=== PATIENT | female | born 1970 | race Caucasian/White ===

== ENCOUNTER → 2021-06-25 | Outpatient (CLI) | payer BC ==
[~2021-06-25] MED LIST: ACET325; CHLO25 PO; HYDACE5 PO; NAPR500 PO; OTC HEARTBURN MED; OXYACE5T PO; PROM25 PO; RANI150 PO; SULTRIDS PO
== END | disposition home or self-care (01) ==
LOC: LAB 10:40 → LAB SHORT 10:40
DX: R30.0 Dysuria (principal)
CPT/HCPCS: 87077; 87086; 87186

== ENCOUNTER → 2021-07-09 | Outpatient (CLI) | payer BC | LOC: LAB 17:00 → LAB SHORT 17:00 | DX: R30.0 Dysuria (principal) | CPT/HCPCS: 87086 ==

== ENCOUNTER 2021-07-18 09:58 | Emergency (ER) | payer BC ==
[~2021-07-18] VITALS: Ht 165.1 cm; Wt 92.5 kg
[2021-07-18 10:50] LABS: BASOPHILS ABSOLUTE AUTO 0.01 K/mm3 (0.00-0.23); BASOPHILS PERCENT AUTO 0 % (0-2); EOSINOPHILS ABSOLUTE AUTO 0.05 K/mm3 (0.00-0.68); EOSINOPHILS PERCENT AUTO 1 % (0-6); Hemoglobin 12.9 g/dL (11.5-16.0); IMMATURE GRAN ABSOLUTE AUTO 0.02 K/mm3 (0.00-0.10); IMMATURE GRAN PERCENT AUTO 0 % (0-1); LYMPHOCYTES ABSOLUTE AUTO 2.19 K/mm3 (0.84-5.20); LYMPHOCYTES PERCENT AUTO 41 % (21-46); MONOCYTES ABSOLUTE AUTO 0.37 K/mm3 (0.16-1.47); MONOCYTES PERCENT AUTO 7 % (4-13); Mean Corpuscular HGB 31.9 pg (26.0-34.0); Mean Corpuscular HGB Conc 34.9 g/dL (31.5-36.5); Mean Corpuscular Volume 91 fL (80-100); Mean Platelet Volume 8.4 fL (9.1-12.4); NEUTROPHILS ABSOLUTE AUTO 2.66 K/mm3 (1.96-9.15); NEUTROPHILS PERCENT AUTO 50 % (41-73); Platelet Count 177 K/mm3 (150-400); RDW Coefficient Variation 12.5 % (11.7-14.2); RDW Standard Deviation 41.1 fL (35.1-46.3); Red Blood Cell Count 4.05 M/mm3 (3.80-5.20)
[2021-07-18 11:06] LABS: Alanine Aminotransfer (ALT/SGP 32 U/L (12-78); Albumin, Blood 3.3 g/dL (3.4-5.0); Albumin/Globulin Ratio 0.7 (0.8-1.8); Alk Phos 56 U/L (50-136); Anion Gap 7 mmol/L (6-16); Aspartate Aminotrans (AST/SGOT 31 U/L (12-37); Bilirubin, Total 0.3 mg/dL (0.1-1.0); Blood Urea Nitrogen 14 mg/dL (8-24); CO2, Blood 26 mmol/L (21-32); Calcium, Blood 9.1 mg/dL (8.5-10.1); Chloride, Blood 105 mmol/L (98-108); Creatinine, Blood 0.67 mg/dL (0.40-1.00); Globulin, Blood 4.9 g/dL (2.2-4.0); Glomerular Filtration Rate >60 (60-); Glucose, Blood 104 mg/dL (70-99); Potassium, Blood 3.7 mmol/L (3.5-5.5); Sodium, Blood 138 mmol/L (136-145); Total Protein, Blood 8.2 g/dL (6.4-8.2); Troponin I <0.015 ng/mL (0.000-0.040)
[2021-07-18] MEDS ORDERED: OMEPRAZOLE MAGN20 MG PO (14:31)
== END 2021-07-18 15:15 | disposition home or self-care (01) ==
LOC: ER 09:58
PROVIDERS: Physician Assistant
DX: R07.89 Other chest pain (principal); Z88.0 Allergy status to penicillin; Z79.899 Other long term (current) drug therapy
CPT/HCPCS: 36415; 71046; 80053; 83690; 83880; 84484; 85025; 93005; 93010; 99285-25

== ENCOUNTER → 2021-08-11 | Outpatient (CLI) | payer BC ==
[~2021-08-11] MED LIST changes: +OMEPRAZOLE MAGN20 MG PO
[2021-08-11 15:02] LABS: CHOL/HDL RATIO 3.9; Cholesterol 286 mg/dL (50-200); HDL Cholesterol 74 mg/dL (>39); LDL/HDL RATIO 2.4; Low Density Lipoprotein Chol 181 mg/dL (0-110); Triglycerides 156 mg/dL (30-160); Very Low Density Lipoprot Chol 31 mg/dL (6-32)
== END | disposition home or self-care (01) ==
LOC: LAB SHORT 08:58 → LAB 08:58
PROVIDERS: Hospitalist
DX: E11.9 Type 2 diabetes mellitus without complications (principal)
CPT/HCPCS: 80061; 82043; 83036

== ENCOUNTER → 2022-01-25 | Outpatient (CLI) | payer BC ==
[2022-01-25 15:42] LABS: BASOPHILS ABSOLUTE AUTO 0.02 K/mm3 (0.00-0.23); BASOPHILS PERCENT AUTO 0 % (0-2); EOSINOPHILS ABSOLUTE AUTO 0.03 K/mm3 (0.00-0.68); EOSINOPHILS PERCENT AUTO 1 % (0-6); Hematocrit 36.2 % (33.0-51.0); Hemoglobin 12.1 g/dL (11.5-16.0); IMMATURE GRAN ABSOLUTE AUTO 0.02 K/mm3 (0.00-0.10); IMMATURE GRAN PERCENT AUTO 0 % (0-1); LYMPHOCYTES ABSOLUTE AUTO 2.41 K/mm3 (0.84-5.20); LYMPHOCYTES PERCENT AUTO 49 % (21-46); MONOCYTES ABSOLUTE AUTO 0.32 K/mm3 (0.16-1.47); MONOCYTES PERCENT AUTO 6 % (4-13); Mean Corpuscular HGB 31.8 pg (26.0-34.0); Mean Corpuscular HGB Conc 33.4 g/dL (31.5-36.5); Mean Corpuscular Volume 95 fL (80-100); NEUTROPHILS ABSOLUTE AUTO 2.17 K/mm3 (1.96-9.15); NEUTROPHILS PERCENT AUTO 44 % (41-73); Platelet Count 135 K/mm3 (150-400); RDW Coefficient Variation 13.3 % (11.7-14.2); RDW Standard Deviation 45.4 fL (35.1-46.3); Red Blood Cell Count 3.81 M/mm3 (3.80-5.20); White Blood Cell Count 4.97 K/mm3 (4.00-11.30)
[2022-01-25 20:05] LABS: Albumin, Blood 3.8 g/dL (3.4-5.0); Albumin/Globulin Ratio 0.9 (0.8-1.8); Bilirubin, Total 0.2 mg/dL (0.1-1.0); Bun/Creatinine Ratio 19.5 (12.0-20.0); Calcium, Blood 8.9 mg/dL (8.5-10.1); Creatinine, Blood 0.62 mg/dL (0.40-1.00); Globulin, Blood 4.1 g/dL (2.2-4.0); Potassium, Blood 3.5 mmol/L (3.5-5.5); Total Protein, Blood 7.9 g/dL (6.4-8.2)
== END | disposition home or self-care (01) ==
LOC: LAB SHORT 09:10
PROVIDERS: Hospitalist
DX: F10.20 Alcohol dependence, uncomplicated (principal)
CPT/HCPCS: 80053; 85025

== ENCOUNTER → 2022-06-29 | Outpatient (CLI) | payer BC | END | disposition home or self-care (01) | LOC: LAB SHORT 12:00 → LAB 12:00 | DX: L08.9 Local infection of the skin and subcutaneous tissue, unspecified (principal) | CPT/HCPCS: 87070; 87077; 87147; 87186 ==

== ENCOUNTER 2024-04-27 09:14 | Inpatient (IN) | payer BC ==
[~2024-04-27] VITALS: Ht 162.6 cm; Wt 78.2 kg
[~2024-04-27 09:14] MED LIST changes: +HYDACE25S PR
[2024-04-27 09:45] LABS: BASOPHILS ABSOLUTE AUTO 0.01 K/mm3 (0.00-0.23); BASOPHILS PERCENT AUTO 0 % (0-2); EOSINOPHILS ABSOLUTE AUTO 0.06 K/mm3 (0.00-0.68); EOSINOPHILS PERCENT AUTO 1 % (0-6); Hematocrit 36.5 % (33.0-51.0); Hemoglobin 12.3 g/dL (11.5-16.0); IMMATURE GRAN ABSOLUTE AUTO 0.03 K/mm3 (0.00-0.10); IMMATURE GRAN PERCENT AUTO 1 % (0-1); LYMPHOCYTES ABSOLUTE AUTO 1.23 K/mm3 (0.84-5.20); LYMPHOCYTES PERCENT AUTO 25 % (21-46); MONOCYTES ABSOLUTE AUTO 0.22 K/mm3 (0.16-1.47); MONOCYTES PERCENT AUTO 5 % (4-13); Mean Corpuscular HGB 33.5 pg (26.0-34.0); Mean Corpuscular HGB Conc 33.7 g/dL (31.5-36.5); Mean Corpuscular Volume 100 fL (80-100); Mean Platelet Volume 8.9 fL (9.1-12.4); NEUTROPHILS ABSOLUTE AUTO 3.34 K/mm3 (1.96-9.15); NEUTROPHILS PERCENT AUTO 68 % (41-73); Platelet Count 121 K/mm3 (150-400); RDW Coefficient Variation 13.4 % (11.7-14.2); RDW Standard Deviation 47.5 fL (35.1-46.3); Red Blood Cell Count 3.67 M/mm3 (3.80-5.20); White Blood Cell Count 4.89 K/mm3 (4.00-11.30)
[2024-04-27 10:16] LABS: Alanine Aminotransfer (ALT/SGP 22 U/L (12-78); Albumin, Blood 2.8 g/dL (3.4-5.0); Albumin/Globulin Ratio 0.6 (0.8-1.8); Alk Phos 42 U/L (50-136); Anion Gap 12 mmol/L (3-11); Aspartate Aminotrans (AST/SGOT 38 U/L (12-37); Bilirubin, Total 0.4 mg/dL (0.1-1.0); Blood Urea Nitrogen 10 mg/dL (8-24); Bun/Creatinine Ratio 18.6 (12.0-20.0); CO2, Blood 21 mmol/L (21-32); Calcium, Blood 8.6 mg/dL (8.5-10.1); Chloride, Blood 108 mmol/L (98-108); Creatinine, Blood 0.54 mg/dL (0.40-1.00); Ethanol (Alcohol), Blood, Med <3 mg/dL; Globulin, Blood 4.8 g/dL (2.2-4.0); Glomerular Filtration Rate 109 (60-); Glucose, Blood 183 mg/dL (70-99); Potassium, Blood 3.8 mmol/L (3.5-5.5); Sodium, Blood 137 mmol/L (136-145); Total Protein, Blood 7.6 g/dL (6.4-8.2)
[2024-04-27] MEDS ORDERED: LORazepam 2 MG/ML 1ML Injection IV ONE (10:30)
[2024-04-27 11:58] LABS: Source, Urine Clean Catch
[2024-04-27 12:07] LABS: Appearance, Urine Hazy (Clear); Bilirubin, Urine Neg (Neg); Blood, Urine 2+ (Neg); Color, Urine Yellow (P-Yellow); Glucose Qualitative, Urine Neg (Neg); Ketones, Urine Neg (Neg); Leukocyte Esterase, Urine 3+ (Neg); Nitrite, Urine Pos (Neg); Protein, Urine 1+ (Neg); Urobilinogen, Urine 1+ (Normal); pH, Urine 6.5 (5.0-8.0)
[2024-04-27 12:15] LABS: Bacteria Many /hpf; Squamous Epithelial Cells Few /hpf (Few); White Blood Cells, Urine 25-50 /hpf (0-5)
[2024-04-27 12:16] LABS: Mucus Heavy (0-Heavy)
[2024-04-27 12:20] LABS: U Amphetamine Screen Not Detected; U Barbituate Screen Not Detected; U Benzodiazapine Screen DETECTED; U Buprenorphine Screen Not Detected; U Cannabinoids Screen DETECTED; U Cocaine Screen Not Detected; U Methadone Screen Not Detected; U Methamphetamine Screen Not Detected; U Opiates Screen Not Detected; U Oxycodone Screen Not Detected; U Phencyclidine Screen Not Detected
[2024-04-27] MEDS ORDERED: CefTRIAXone Sodium 1,000 MG in NS 100 ML IV ONE (12:35)
[2024-04-27] MEDS ORDERED: CefTRIAXone 1000 MG Vial ONE (13:33)
[2024-04-27] MEDS ORDERED: NS 100 ML IV ONE (13:33)
[2024-04-27] MEDS ORDERED: Acetaminophen 325 MG TABLET PO PRN (13:35)
[2024-04-27] MEDS ORDERED: Ondansetron HCl 2 MG / ML 2ML Vial IV PRN (13:35)
[2024-04-27] MEDS ORDERED: ChlordiazePOXIDE 25 MG Cap PO PRN (13:40)
[2024-04-27] MEDS ORDERED: Folic Acid 1 MG TAB PO SCH (14:00)
[2024-04-27] MEDS ORDERED: Thiamine HCl 100 MG Tab PO SCH (14:00)
[2024-04-27 15:18] VITALS: BP 157/95
[2024-04-27] MEDS ORDERED: Insulin Human Lispro 100 Units/ML 3ML Syringe SC SCH (16:30)
--- NOTE | 2024-04-27 17:24 | NUR ---
SHIFT SUMMARY 1512 PT ADMITTED TO 349 VIA GURNEY FROM ER. PT ABLE TO TX TO BED WITH 2P ASSIST, TAKING SM STEPS. PT VERY UNSTEADY WITH TREMORS NOTED. PT ADMITTED FOR ENCEPHALOPATHY FROM [place]. SPEECH IS SLURRED. PT ABLE TO ANS SOME QUESTIONS APPROPRIATELY. PT'S MOM TO UPON ADMISSION. PER ER REPORT, PT FOUND TO HAVE UTI; ROCEPHIN GIVEN IN ER. NO C/O N/V OR PAIN. PT'S MOM REPORTED THAT S/O; ALEXIS GHOSH, LIVES WITH PT IN HER HOUSE AND DRINKS HEAVILY WELL. VSS; SEE CHART. BED ALARM ON FOR SAFETY. CALL LT IN REACH.
--- NOTE | 2024-04-27 18:03 | NUR ---
PT REQUESTED SOFT DIET, REPORTING THAT SHE IS NOT ABLE TO EAT REGULAR FOOD DUE TO A LOWER LEFT TOOTH INFECTION. L SIDE OF FACE SLIGHTLY SWOLLEN WITH PT REPORTING IT PAINFUL. PT SITTING UP TO EOB REPORTING THAT SHE NEEDED TO GO TO THE BATHRM. 2P ASSIST USING GB TO GET TO BSC AND BACK. PT IS VERY WEAK AND UNSTEADY. BED ALARM ON. CALL LT IN REACH.
[2024-04-27] MEDS ORDERED: ESTRADIOL1 MG PO (18:36)
[2024-04-27] MEDS ORDERED: ZESTRIL40 M1 PO (18:37)
[2024-04-27] MEDS ORDERED: METO50ER PO (18:38)
[2024-04-27] MEDS ORDERED: OMEP20ER PO (18:39)
[2024-04-27 19:38] VITALS: BP 157/97
[2024-04-27] MEDS ORDERED: BUPROPION XL150 M1 PO (23:10)
[2024-04-27] MEDS ORDERED: ACAMPROSATE CA333 MG PO (23:12)
[2024-04-27] MEDS ORDERED: HYDR25SUP PR (23:14)
[2024-04-28] MEDS ORDERED: LORazepam 2 MG/ML 1ML Injection IV PRN ×2 (00:05→00:15)
[2024-04-28] MEDS ORDERED: LORazepam 2 MG/ML 1ML Injection IV ONE (00:10)
[2024-04-28 02:12] VITALS: BP 130/86
--- NOTE | 2024-04-28 03:09 | NUR ---
ONLINE CONTENT COORDINATOR SUMMARY VSS. INTERMITTENT AGITATION, NOTED ARGUMENTS WITH SELF. CALLING OUT, MULTIPLE ATTEMPTS TO GET OUT OF BED. REFUSED TO REDIRECT. LIBRIUM PO ADMINISTERED FOR APPARENT WITHDRAWL SYMPTOMS, BUT MED SEEMED NOT TO WORK. MD NOTIFIED AND ORDERS FOR IV ATIVAN OBTAINED. MED ADMINISTERED, PT STILL ARGUED WITH SELF LOUDLY. INCONT, CHANGED. FLUIDS ENCOURAGED. REST ENCOURAGED. RECENTLY SEEMED TO CALM, RESTING QUIETLY AT THIS TIME. CALL LIGHT IN REACH. RAILS UP AND BED IN LOW POSITION FOR SAFETY. 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 WILL CONTIINUE TO MONITOR
[2024-04-28 04:59] LABS: Hematocrit 33.2 % (33.0-51.0); Hemoglobin 11.7 g/dL (11.5-16.0); Mean Corpuscular HGB 33.4 pg (26.0-34.0); Mean Corpuscular HGB Conc 35.2 g/dL (31.5-36.5); Mean Platelet Volume 8.9 fL (9.1-12.4); Platelet Count 113 K/mm3 (150-400); RDW Coefficient Variation 13.4 % (11.7-14.2); RDW Standard Deviation 45.8 fL (35.1-46.3); White Blood Cell Count 4.75 K/mm3 (4.00-11.30)
[2024-04-28 05:02] LABS: Mean Corpuscular Volume 95 fL (80-100)
[2024-04-28] MEDS ORDERED: OLANZapine 10 MG Vial IM ONE (05:55)
[2024-04-28 05:56] LABS: Albumin, Blood 2.9 g/dL (3.4-5.0); Albumin/Globulin Ratio 0.6 (0.8-1.8); Bilirubin, Total 0.5 mg/dL (0.1-1.0); Bun/Creatinine Ratio 12.1 (12.0-20.0); Calcium, Blood 8.6 mg/dL (8.5-10.1); Creatinine, Blood 0.58 mg/dL (0.40-1.00); Globulin, Blood 4.5 g/dL (2.2-4.0); Magnesium, Blood 1.2 mg/dL (1.6-2.4); Phosphorus, Blood 3.7 mg/dL (2.5-4.9); Potassium, Blood 3.4 mmol/L (3.5-5.5); Total Protein, Blood 7.4 g/dL (6.4-8.2)
[2024-04-28] MEDS ORDERED: Omeprazole 20 MG CapCR PO SCH (06:00)
--- NOTE | 2024-04-28 06:48 | NUR ---
MOTHER CALLED RE PT UPDATE. NOTIFIED OF MCKENZIE AND MEDS GIVEN. STATES WILL COME IN TO SEE HER LATER TODAY
[2024-04-28 07:21] VITALS: BP 148/101
[2024-04-28] MEDS ORDERED: Magnesium Sulf 2 GM/Water 50ML 50 ML IV STA (08:42)
[2024-04-28] MEDS ORDERED: Enoxaparin 40 MG/0.4 ML SYR SC SCH (09:00)
[2024-04-28] MEDS ORDERED: Potassium Chloride 20 MEQ/15 ML UDC PO SCH (09:00)
[2024-04-28] MEDS ORDERED: Estradiol 1 MG Tab PO SCH (09:00)
[2024-04-28] MEDS ORDERED: Lisinopril 20 MG Tab PO SCH (09:00)
[2024-04-28] MEDS ORDERED: Metoprolol Succinate 50 MG TABCR PO SCH (09:00)
[2024-04-28 10:40] VITALS: BP 148/66
--- NOTE | 2024-04-28 11:16 | NUR ---
RESTRAINTS, POSY VEST, LOOSENED PER PROTOCOL THIS AM. PATIENT ATTEMPTING BED EXIT SEVERAL TIMES, NOT TAKING REDIRECTION, NOT ABLE TO ADHERE TO SAFETY RECOMMENDATIONS. AGITATED, YELLING OUT, HALLUCINATING FAMILY MEMEBERS IN ROOM. FLIPPING OFF STAFF, USING PROFAINITY TOWARDS STAFF. MOM PRESENT IN ROOM FOR SECOND ATTEMPT AT LOOSENING VEST, PATIENT BECAME MORE AGITATED THAN BEFORE, MAKING STATEMENTS THAT SHE IS "GOING TO THROW HERSELF ON THE FLOOR LIKE A BABY" "NOT GOING TO EAT ANYMORE AND STARVE TO ". WAS AGREEABLE TO TAKE MEDICATIONS AND DID EAT BREAKFAST.
[2024-04-28] MEDS ORDERED: HydrALAZINE HCl 20 MG / ML 1ML Vial IV PRN (12:35)
[2024-04-28] MEDS ORDERED: CefTRIAXone Sodium 1,000 MG in NS 100 ML IV SCH (13:00)
[2024-04-28] MEDS ORDERED: CefTRIAXone 1000 MG Vial ONE (13:20)
[2024-04-28] MEDS ORDERED: NS 100 ML IV ONE (13:20)
[2024-04-28 15:32] VITALS: BP 147/91
--- NOTE | 2024-04-28 16:57 | NUR ---
SHIFT SUMMARY PATIENT CONTINUES TO REQUIRE MCKENZIE VEST FOR SAFETY, ATTEMTPTING BED EXIT ALMOST CONTINUOUSLY, UNABLE TO ADHERE TO SAFETY INSTRUCTIONS, UNABLE TO FOLLOW BASIC INSTRUCTIONS WHILE IN BED, HALLUCINATING, UNAWARE OF FALL RISKS, UNABLE TO REDIRECT. CIWA SCORES PERFORMED PER PROTOCOL THIS SHIFT, MEDICATED PER NOV. SUICIDE PRECAUTIONS INITIATED FOR DESCRIPTIVE STATEMENTS OF WANTING TO KILL SELF. STATED TO HAVING ROPE HUNG IN GARAGE READY TO HANG HERSELF, STATED SHE TO HAVING A GUN AND SHE IS READY TO SHOOT HERSELF, THAT SHE HAS HAD MULTIPLE UNSUCCESSFUL ATTEMPTS IN THE PAST YEARS, STATED THAT SHE DOES WISH TO AND WILL TRY WHEN SHE GETS HOME, MADE GESTURE OF CUTTING HER THROAT. WORKED WITH PT THIS SHIFT. NO C/O PAIN THIS SHIFT. NOT ALWAYS ABLE TO MAKE NEEDS KNOWN. SITTER PRESENT AT ABOUT 1530. CARES ONGOING.
[2024-04-28 19:26] VITALS: BP 153/94
--- NOTE | 2024-04-28 20:45 | NUR ---
REMAINS ON SI PRECAUTIONS. ROOM SAFE. 1:1 SITTER IN CONTINUOUS MONITORING. SISTER WAS HERE. WAS MORE COMPLIANT WITH MEDS, BUT STILL REFUSING TO COMPLY WITH TREATMENT. WILL CONT TO MONITOR
--- NOTE | 2024-04-28 22:28 | NUR ---
DURING SI ASSESSMENT EARLIER, PT NOT WILLING TO SPEAK WITH TERESITA RICHMOND SI. 1:1 AND SISTER AT BEDSIDE. MCKENZIE ON. ASSESSMENT INSTRUCTED NURSE TO CALL MD TO NOTIFY MD OF PT NOT WILING TO SPEAK, MD NOTIFIED, WILL CONTINUE TO MONITOR. CALL LIGHT IN REACH,
[2024-04-29] MEDS ORDERED: Melatonin 5 MG Tablet PO PRN (01:15)
[2024-04-29 02:34] VITALS: BP 143/88
--- NOTE | 2024-04-29 03:13 | NUR ---
SAWMILL EQUIPMENT OPERATOR SUMMARY VSS. AGITATION AND CONFUSION CONTINUES, AND NOW ON 1:1 FOR SUICIDAL IDEATIONS. INTERMITTENT THREATS OF SELF HARM AND THREATS TO HARM OTHERS. REMAINS IN MCKENZIE VEST FOR SAFETY, SHE CONTINUES TO TRY TO GET OOB, AND IS UNSTEADY. SISTER WAS AT BEDSIDE FOR MUCH OF THE EVENING FOR SUPPORT. RECEIVED IV ATIVAN A FEW TIMES FOR AGITATION AND S/S ETOH WITHDRAWL. INCONT OF URINE AND CHANGED. RESTRAINT CHECKS AND SI ASSESSMENTS CONTINUE. REMAINS WITHOUT APPARENT S/S SELF HARM. SAFETY ENCOURAGED. ENCOURAGED TO EAT AND DRINK, BUT ONLY TOLERATES SMALL AMTS OF FLUIDS. ACCU CHECK WNL. RESTING QUIETLY AT THIS TIME. SHORTENED VERSION OF CALL LIGHT IN REACH, RAILS UP X 3 AND BED IN LOW POSITION FOR SAFETY. ABLE TO REPOSITION SELF IN BED WITHOUT ASSIST. WILL CONTINUE TO MAINTAIN SAFETY OF PT AND ENCOURAGE PT TO FOCUS ON REMAINING SAFE WELL.
[2024-04-29 04:43] LABS: Bun/Creatinine Ratio 14.4 (12.0-20.0); Calcium, Blood 9.2 mg/dL (8.5-10.1); Creatinine, Blood 0.62 mg/dL (0.40-1.00); Magnesium, Blood 1.7 mg/dL (1.6-2.4); Potassium, Blood 3.7 mmol/L (3.5-5.5)
--- NOTE | 2024-04-29 05:12 | NUR ---
VEST RESTRAINT ORDER RENEWED DUE TO PT CONTINUING TO REMAIN UNSAFE GETTING OOB, UNSTEADY AND POSSIBLE FALL RISK.
[2024-04-29 07:42] VITALS: BP 143/82
--- NOTE | 2024-04-29 08:52 | NUR ---
RETURNED CALL TO PATIENT'S MOM, NO ANSWER, UNSPECIFIED VOICEMAIL SO NO MESSAGE LEFT.
--- NOTE | 2024-04-29 09:12 | NUR ---
CALLED SISTER BACK, ASKED FAMILY TO STAY HOME FOR SOME TIME THIS AM TO LET PATIENT REST. PATIENT IS RESTING IN BED QUIETLY WITH EYES CLOSED.
[2024-04-29] MEDS ORDERED: CefTRIAXone 1000 MG Vial ONE (12:53)
[2024-04-29] MEDS ORDERED: NS 100 ML IV ONE (12:53)
[2024-04-29] MEDS ORDERED: NS 250 ML IV PRN (13:40)
[2024-04-29 15:34] VITALS: BP 127/79
[2024-04-29] MEDS ORDERED: NS 1,000 ML IV SCH (17:00)
--- NOTE | 2024-04-29 17:33 | NUR ---
SHIFT SUMMARY MORNING MEDS GIVEN LATER, HELD FOR SAFETY. PATIENT RESTING SO SOUNDLY THIS AM, UNABLE TO WAKE ENOUGH TO SWALLOW SAFELY. PATIENT SPEECH MORE CLEAR COMPARED TO YESTERDAY DAY SHIFT. SCORING LOWER END OF CIWA, MEDICATED ONCE WITH LIBRIUM. BECAME AGITATED WHEN SISTER PRESENT. SISTER LEFT SOON SHE SPOKE WITH DOC AND PATIENT CALMED. IV FLUIDS STARTED SHE HAS HAD POOR PO INTAKE. ABLE TO GET TO BSC WITH 2 ASSIST THIS SHIFT, HAD BM. CALL LIGHT IN REACH, 1:1 SITTER PRESENT, MCKENZIE VEST ON, SI PRECAUTIONS STILL IN EFFECT. PSYCH DOC IN THIS AM, DEFFERED ASSESSMENT UNTIL TOMORROW BECAUSE PATIENT WOULDN'T WAKE LONG ENOUGH. CARES ONGOING
[2024-04-29 20:15] VITALS: BP 132/85
[2024-04-29] MEDS ORDERED: Haloperidol Lactate Inj. 5 MG/ML Injection IM PRN (22:35)
[2024-04-29] MEDS ORDERED: Haloperidol Lactate Inj. 5 MG/ML Injection IM ONE (22:35)
--- NOTE | 2024-04-29 23:00 | NUR ---
SCREAMING AT STAFF, KICKING AT STAFF. SPITTING AT STAFF. MEDS GIVEN FOR AGITATION. ATIVAN GIVEN, STILL AGITATED. NOTIFIED AND HAKEEM MITCHELL ORDERED AND GIVEN. IVF INFUSING. SEE MAR FOR DETAILS. MCKENZIE IN PLACE. RAILS UP X 3. SHORT CALL LIGHT IN PLACE. 1:1 SITTER MAINTAINED. DEESCALATION ATTEMPTS MADE. SISTER CALLED, INFORMED OF PT SITUATION. VOICED SHE WAS IN "[place]" AND THAT THE PT HAD BECOME AGITATIED WITH HER WELL AND SO SHE WOULD TAKE A FEW DAYS TO REST BEFORE COMING BACK. WILL CONTINUE TO MONITOR
--- NOTE | 2024-04-29 23:10 | NUR ---
SUICIDE ASSESSMENT NOTE REMAINS ON SUICIDE PRECAUTIONS WITH 1:1 SITTER. AGITATION AND ANGER WAXES AND WANES, BUT THREATS CONTINUE, REFUSES TO TALK WITH STAFF, SCREAMS AND SPITS. MEDS GIVEN - SEE MAR FOR DETAILS. SAFETY MAINTAINED. MCKENZIE IN PLACE. RAILS UP X 3. SHORT VERSION OF CALL LIGHT IN PLACE.
--- NOTE | 2024-04-30 03:37 | NUR ---
CULTURAL HISTORIAN SUMMARY VSS. 1:1 SITTER REMAINS FOR SI PRECAUTIONS. IVF OF NS INFUSING AT 75 ML/HR. SHIFT STARTED WITH PT RESTING QUIETLY WITH MCKENZIE IN USE FOR SAFETY, THEN A FEW HOURS INTO THE SHIFT, BECAME VERY AGITATED, SCREAMING AT STAFF, SPITTING AT THEM AND THREATENING THAT HER MALE ACQUAINTENANCE WILL KILL EACH OF US. INCONT OF URINE AFEW TIMES AND CHANGED WITH MULTIPLE STAFF ASSIST. CIWA SCORES REMAIN ELEVATED, ATIVAN PRN ADMINISTERED. NOTIFIED OF BEHAVIOR - ORDERS OBTAINED, SEE MAR FOR DETAILS. PRNS FINALLY EFFECTIVE, RSETING QUIETLY. NO NOTED ACUTE DISTRESS AT THIS TIME. ABLE TO REPOSITION SELF IN BED WITHOUT ASSIST, MCKENZIE IN PLACE AND CHECKS Q 2 HR CONTINUE WELL Q 4 HR CHECK/ASSESS FOR SI. RAILS UP X 3, BED IN LOW POSITION AND SHORT CALL LIGHT IN PLACE FOR SAFETY. WILL CONT TO MONITOR/ASSESS
--- NOTE | 2024-04-30 05:09 | NUR ---
MCKENZIE RESTRAINT ORDER RENEWED PT CONTINUES TO DISPLAY UNSAFE BEHAVIOR, ATTEMPTS TO GET OOB, UNSTEADY AND NOT REDIRECTABLE. - SEE MD ORDRES FOR DETAILS
[2024-04-30 07:34] VITALS: BP 138/92
[2024-04-30 08:35] LABS: Hematocrit 36.9 % (33.0-51.0); Hemoglobin 12.9 g/dL (11.5-16.0); Mean Corpuscular HGB 33.5 pg (26.0-34.0); Mean Corpuscular Volume 96 fL (80-100); Mean Platelet Volume 9.2 fL (9.1-12.4); Platelet Count 142 K/mm3 (150-400); RDW Coefficient Variation 13.1 % (11.7-14.2); RDW Standard Deviation 45.9 fL (35.1-46.3); Red Blood Cell Count 3.85 M/mm3 (3.80-5.20); White Blood Cell Count 4.59 K/mm3 (4.00-11.30)
[2024-04-30 08:47] LABS: Bun/Creatinine Ratio 23.2 (12.0-20.0); Calcium, Blood 8.9 mg/dL (8.5-10.1); Creatinine, Blood 0.52 mg/dL (0.40-1.00); Potassium, Blood 3.8 mmol/L (3.5-5.5)
[2024-04-30] MEDS ORDERED: NS 100 ML IV ONE (12:33)
[2024-04-30] MEDS ORDERED: CefTRIAXone 1000 MG Vial ONE (12:33)
[2024-04-30 15:17] VITALS: BP 152/97
--- NOTE | 2024-04-30 16:17 | NUR ---
PT STARTED SHIFT CONFUSED, AND IMPULSIVE TRYING TO GET OUT OF BED. PT WAS PLEASANT AND REDIRECTABLE. PT HAS SITTER WITH HER AND WAS APPROPRIATE WITH HER CARE. PT THEN BEGAN TO GET AGITATED AND WAS GIVEN SOME ATIVAN BY 1315 PT WAS SCREAMING, YELLING, PULLING AT LINES, KICKING AND HITTING. PT WAS PUT INTO WRIST RESTRAINTS AND TREATED PER EMAR. PT'S SISTER ALSO ARRIVED AND WAS ABLE TO BE IN ROOM AND CALM PT. PT IS BEING WATCHED CLOSELY, AND SEEMS BETTER WILL CONTINUE TO MONITOR.
--- NOTE | 2024-04-30 16:21 | NUR ---
PT'S RESPONSE TO THE ATIVAN DOSES WAS REPORTED TO DR VALENTINO AND ATIVAN HAS BEEN DC'D.
[2024-04-30] MEDS ORDERED: OLANZapine 10 MG Vial IM PRN (16:45)
[2024-04-30] MEDS ORDERED: Haloperidol Lactate Inj. 5 MG/ML Injection IV PRN (16:45)
[2024-04-30 21:13] VITALS: BP 115/83
--- NOTE | 2024-05-01 03:37 | NUR ---
GEODESIST SUMMARY SHIFT STARTED OUT WITH PT SCREAMING AT HER SISTER IN THE ROOM, CALLING HER NAMES. ON FIRST ASSESSMENT, WHEN WE LOOSENED RESTRAINTS TO CHANGE HER BRIEF, (WHICH SHE HAD CALMLY AGREED TO), SHE GRABBED MY STETHESCOPE AND STARTED SWINGING IT AT MY HEAD. THEN SHE VERBALLY THREATENED TO "CHOKE" ME WITH IT. DALTON SANDERS CNA, WAS WITNESS TO THIS. SHE WAS ONLY ORIENTED X 1, THOUGHT SHE WAS IN HER HOME, AND WAS SCARED FOR HER SAFETY. WE CALMLY REASSURED HER AND TRIED TO REORIENT HER, BUT SHE WAS NOT REDIRECTABLE. WHEN TOLD SHE WAS IN THE HOSPITAL, SHE SAID "NO WERE NOT, YOURE FUCKING LIARS". EXPLAINED RESTRAINT DISCONTINUATION CRITERIA TO PATIENT, THAT SHE WOULD NEED TO STOP KICKING AND SWINGING AT STAFF BUT SHE WOULD NOT AGREE TO THIS. ANDRE AND GRADYL GIVEN THIS SHIFT WITH TEMPORARY MILD IMPROVEMENTS IN BEHAVIOR. PT REMAINS IN 4 POINT RESTRAINTS AND SI SITTER/SI PRECAUTIONS. RESTRAINTS CHECKED EVERY 2 HOURS, WITH CIRCULATION/SKIN CHECKS AND WITH OFFERS FOR TOILET/FOOD/DRINK/COMFORT. PT CONTINUES TO BE A DANGER TO HERSELF AND OTHERS, WITH MULTIPLE ATTEMPTS TO GET UP WITHOUT ASKING FOR ASSISTANCE, MULTIPLE ATTEMPTS AT PULLING OUT HER IV, AND MULTIPLE ATTACKS TOWARDS STAFF, INCLUDING SPITTING, HITTING, AND KICKING. SISTER LEFT AT 2014 AND PLANS ON COMING BACK IN THE MORNING TO HELP.
[2024-05-01 05:15] VITALS: BP 132/80
[2024-05-01 06:55] LABS: BASOPHILS ABSOLUTE AUTO 0.01 K/mm3 (0.00-0.23); BASOPHILS PERCENT AUTO 0 % (0-2); EOSINOPHILS ABSOLUTE AUTO 0.04 K/mm3 (0.00-0.68); EOSINOPHILS PERCENT AUTO 1 % (0-6); Hematocrit 36.6 % (33.0-51.0); IMMATURE GRAN ABSOLUTE AUTO 0.02 K/mm3 (0.00-0.10); IMMATURE GRAN PERCENT AUTO 0 % (0-1); LYMPHOCYTES ABSOLUTE AUTO 1.84 K/mm3 (0.84-5.20); LYMPHOCYTES PERCENT AUTO 41 % (21-46); MONOCYTES ABSOLUTE AUTO 0.43 K/mm3 (0.16-1.47); MONOCYTES PERCENT AUTO 10 % (4-13); Mean Corpuscular HGB Conc 35.5 g/dL (31.5-36.5); Mean Corpuscular Volume 96 fL (80-100); Mean Platelet Volume 9.4 fL (9.1-12.4); NEUTROPHILS ABSOLUTE AUTO 2.17 K/mm3 (1.96-9.15); NEUTROPHILS PERCENT AUTO 48 % (41-73); Platelet Count 137 K/mm3 (150-400); RDW Coefficient Variation 13.1 % (11.7-14.2); RDW Standard Deviation 45.6 fL (35.1-46.3); Red Blood Cell Count 3.82 M/mm3 (3.80-5.20); White Blood Cell Count 4.51 K/mm3 (4.00-11.30)
[2024-05-01 07:25] LABS: Bun/Creatinine Ratio 16.7 (12.0-20.0); Calcium, Blood 9.3 mg/dL (8.5-10.1); Creatinine, Blood 0.48 mg/dL (0.40-1.00); Potassium, Blood 3.9 mmol/L (3.5-5.5)
[2024-05-01 07:47] VITALS: BP 126/85
[2024-05-01] MEDS ORDERED: Folic Acid 1 MG TAB PO SCH (09:00)
[2024-05-01] MEDS ORDERED: D5W-1/2NS 1,000 ML IV SCH (12:25)
[2024-05-01 15:23] VITALS: BP 165/108
--- NOTE | 2024-05-01 15:59 | NUR ---
PT CONTINUES TO BE AOX1 AND AGITATED. PT HAS A SMALL BIT OF TIME WHERE SHE SEEMED TO BECOME MORE COOPERATIVE, BUT THEN SHE BEGAN TO ESCALATE. PT HAS BEEN TREATED PER EMAR. PT HAD HIGH AFTERNOON BP SHE HAD REFUSED AM MEDS. ORAL BP MEDS WERE GIVEN AND SHE DID TAKE THEM. PT CONTINUES TO NEED RESTRAINTS REFER TO CHARTING. BED ALARM IN IN PLACE AND SITTER IS IN PLACE. WILL CONTINUE TO MONITOR.
[2024-05-01] MEDS ORDERED: Thiamine HCl 500 MG in NS 100 ML IV SCH (16:00)
--- NOTE | 2024-05-01 16:06 | NUR ---
PT DOES HAVE SOME REDNESS IN COCCYX AREA MEPLEX HAS BEEN PLACE X2.
--- NOTE | 2024-05-01 18:37 | NUR ---
PT'S AUNT AND NEXT OF KIN CALLED IN AND MADE PT CONFIDENTIAL PASSWORD IS ABRAM. PT IS CURRENTLY NOT OREIENTED TO MAKE HER OWN CHOICES.
[2024-05-01 19:53] VITALS: BP 149/100
--- NOTE | 2024-05-02 02:05 | NUR ---
PATIENT YELLING OUT, CUSSING, YELLING FOR ALEXIS TO TAKE HER SHOES OFF AND TO GET HER CAR KEYS. YELLING "GOD DAMN IT GET IN HERE BITCH". PATIENT OFFERED BED VILLATORO, DRINK, ASSESSED FOR PAIN, AND ANY OTHER NEEDS.
--- NOTE | 2024-05-02 04:37 | NUR ---
SHIFT SUMMARY. PATIENT IS ALERT TO SELF. PATIENT CALLING OUT TONIGHT, CUSSING, CALLING FOR ALEXIS. PATIENT NONSENSICAL WHEN TRYING TO TALK TO HER-SPEECH IS MUMBLED AND HARD TO UNDERSTAND. PATIENT IN 4 POINT RESTRAINTS-WHEN REMOVED FROM RESTRAINTS FOR CHANGING PATIENT ATTEMPTING OOB, THRASHING. PATIENT OFFERED WATER, TOILETING, ASSESSED FOR PAIN, AND NEEDS ADDRESSED EVERY 2 HOURS. PATIENT HAS 1:1 SITTER FOR HIGH SI. PATIENT RESTING OFF AND ON T/O NIGHT. HALLUCINATING. PATIENT MEDICATED WITH PRN MEDS FOR AGGITATION-WITH LITTLE IMPROVEMENT. BED IS LOCKED IN THE LOWEST POSITION WITH CALL LIGHT IN REACH. CARE IS ONGOING.
[2024-05-02 07:13] VITALS: BP 133/82
[2024-05-02 08:56] LABS: BASOPHILS ABSOLUTE AUTO 0.02 K/mm3 (0.00-0.23); BASOPHILS PERCENT AUTO 0 % (0-2); EOSINOPHILS ABSOLUTE AUTO 0.03 K/mm3 (0.00-0.68); EOSINOPHILS PERCENT AUTO 1 % (0-6); Hematocrit 34.7 % (33.0-51.0); Hemoglobin 12.2 g/dL (11.5-16.0); IMMATURE GRAN ABSOLUTE AUTO 0.01 K/mm3 (0.00-0.10); IMMATURE GRAN PERCENT AUTO 0 % (0-1); LYMPHOCYTES PERCENT AUTO 18 % (21-46); MONOCYTES PERCENT AUTO 9 % (4-13); Mean Corpuscular HGB 33.3 pg (26.0-34.0); Mean Corpuscular HGB Conc 35.2 g/dL (31.5-36.5); Mean Corpuscular Volume 95 fL (80-100); Mean Platelet Volume 9.2 fL (9.1-12.4); NEUTROPHILS ABSOLUTE AUTO 4.15 K/mm3 (1.96-9.15); NEUTROPHILS PERCENT AUTO 73 % (41-73); Platelet Count 167 K/mm3 (150-400); RDW Coefficient Variation 13.1 % (11.7-14.2); Red Blood Cell Count 3.66 M/mm3 (3.80-5.20); White Blood Cell Count 5.71 K/mm3 (4.00-11.30)
[2024-05-02] MEDS ORDERED: Folic Acid 1 MG in NS 50 ML IV SCH (09:00)
[2024-05-02 09:14] LABS: Bun/Creatinine Ratio 6.4 (12.0-20.0); Calcium, Blood 8.9 mg/dL (8.5-10.1); Creatinine, Blood 0.47 mg/dL (0.40-1.00); Potassium, Blood 3.2 mmol/L (3.5-5.5)
[2024-05-02] MEDS ORDERED: TPN Consult Notification XX ONE (11:55)
[2024-05-02 12:34] LABS: Magnesium, Blood 1.5 mg/dL (1.6-2.4); Phosphorus, Blood 3.7 mg/dL (2.5-4.9)
[2024-05-02] MEDS ORDERED: Mag Sulfate 1 GM/D5% 100ML 100 ML IV STA (13:17)
[2024-05-02 15:04] VITALS: BP 129/81
[2024-05-02] MEDS ORDERED: [UNRECOGNIZED DRUG - NUTRITION] IV SCH (17:00)
--- NOTE | 2024-05-02 18:03 | NUR ---
SHIFT SUMMARY PATIENT RESTING MOST OF SHIFT. UNPREDICTABLE WHEN AROUSES. PATIENT CONFUSED AND AGITATED AT TIMES. CONTINUES TO HAVE HALLUCINATIONS. PATIENT BECAME REALLY AGITATED WHILE SISTER WAS HERE TO SEE PATIENT. PATIENT YELLING AT HER AND CALLING HER NAMES. PATIENT THREATENING TO HARM HER SISTER. PATIENT CONTINUES TO NEED RESTRAINTS. PATIENT COOPERATIVE LONG ENOUGH TO GET A SHOWER. PATIENT ABLE TO WALK INTO BATHROOM FOR SHOWER BUT VERY WEAK AFTER NEEDING TO BE TRANSFERED TO A CHAIR AFTER SHOWER. PATIENT NOTED TO HAVE LINEAR COCCYX SKIN BREAKDOWN PATIENT HAVING LIQUID STOOLS. ATTEMPTED A MEPELEX DRESSING BUT REPEATEDLY BECAME SOILED. BARRIER CREAM APPLIED TO AREA. PATIENT DRINKING FLUIDS WHEN OFFERED. ATTEMPTED TO HAVE PATIENT EAT BUT REFUSED. PPN STARTED THIS EVENING.
--- NOTE | 2024-05-02 19:10 | NUR ---
PATIENT YELLING "I WANT TO GO HOME AND DRINK, I DONT CARE I WILL DRINK MYSELF TO . I AM GOING TO KEEP DRINKING I DONT WANT TO STOP AND IM NOT GOING TO STOP"
--- NOTE | 2024-05-02 19:58 | NUR ---
PATIENT SAYING SHE NEEDS TO GO TO THE BATHROOM ROOM THIS RN IN TO BEDSIDE TO OFFER PATIENT THE BEDPAN PATIENT ASKED THIS RN WHO SHE IS? PATIENT SAID "YOU KNOW WHAT YOUR GOING TO DO FOR ME" THIS RN RESPONDED "YES, I AM HERE TO HELP YOU GET ON THE BED VILLATORO BECAUSE YOU HAVE TO GO TO THE BATHROOM RIGHT?", PATIENT RESPONDED "NO YOUR NOT I JUST SAID THAT TO GET SOMEONE IN HERE AGAIN, YOU NEED TO GO EAT BATH SALTS AND EAT PEOPLE".
--- NOTE | 2024-05-02 22:10 | NUR ---
HOSPITALIST CONTACTED. HOSPITALIST LUIS CONTACTED. PATIENT HAS ORDERS FOR Q6 BLOOD SUGARS AND ACHS LISPRO-LUIS ORDERED FOR Q6 LISPRO ORDERS-SEE ORDERS.
[2024-05-03] MEDS ORDERED: Insulin Human Lispro 100 Units/ML 3ML Syringe SC SCH
--- NOTE | 2024-05-03 01:35 | NUR ---
THIS RN AND SOPHIA BLUM TO PATIENTS ROOM TO CHANGE PATIENT. PATIENT HAS STOOL AND URINE IN BBRIEF-PATIENT HAS OPEN SORE TO GLUTEAL FOLD. PATIENT AGGITATED AND YELLING AT STAFF "YOU ARE A CUNT, FUCK YOU BITCHES. AUNT KASHMIR, AUNT KASHMIR COME KILL THEM, IM GOING TO KILL YOU BY HANGING. I HAVE TO GO TO SCHOOL, LET ME GO". STAFF LET PATIENT KNOW WE ARE GETTING HER BRIEF CHANGED TO HELP PROTECT HER SKIN AND TO MAKE HER COMFORTABLE-ATTEMPTED TO EDUCATE PATIENT ON BED SORES/WOUNDS-PATIENT BEGAN CURSING AT STAFF AND ATTEMPTING TO HIT AND KICK STAFF-PATIENT IS IN 4 POINT SOFT RESTRAINTS-PATIENT IS ABLE TO GET LOOSE FROM SOFT RESTRAINTS. PATIENT MAY NEED TO BE CONSIDERED FOR TUFF CUFFS.
--- NOTE | 2024-05-03 02:14 | NUR ---
PATIENT YELLING FOR KASHMIR TO GET OUT OF HER ROOM AND THAT KASHMIR IS TRYING TO KILL HER/ PATIENT YELLING TO GO AHEAD AND KILL HER, "KILL ME KASHMIR, KASHMIR KILL ME, GET OFF MY LEGS KASHMIR THAT HURTS, GET OUT OF MY ROOM, OUT OF MY ROOM."
--- NOTE | 2024-05-03 04:26 | NUR ---
SHIFT SUMMARY. PATIENT IS ALERT TO SELF. PATIENT YELLING OUT AT BEGINNING OF SHIFT, THIS CONTINUED FOR SEVERAL HOURS-PATIENT MEDICATED WITH PRN MEDICATIONS FOR AGGITATION-WITH SOME IMPROVEMENT TO PATIENTS IRRITABILTY, VERBAL AGGRESSION, AND ATTEMPTS TO HIT, SPIT, KICK STAFF. PATIENT HAS BEEN YELLING OUT T/O SHIFT OFF AND ON WITH TIMES OF REST. PATIENT REFUSED TO DRINK, PATIENT INCONTINENT T/O NIGHT. PATIENT NON-RECEPTIVE WO EDUCATION. PATIENT IS CONCRETE IN HERE THOUGHT PROCESS. PATIENT UNABLE TO BE REDIRECTED. PATIENT RESPONDING TO STAFF WITHCULGAR, AGGRESSIVE LANGUAGE, AND ATTEMPTS TO HIT, KICK OR SPIT AT STAFF WHEN IN CLOSE PROXIMITY TO PATIENT. PATIENT OFFERED THERAPUETIC COMMUNICATION, FLUIDS, SNACKS, AND PATIENT CARE. BED IS LOCKED IN THE LOWEST POSITION. PATIENT HAS 1:1 SITTER FOR HIGH SI. CARE IS ONGOING.
[2024-05-03 06:30] LABS: Anion Gap 12 mmol/L (3-11); Blood Urea Nitrogen 9 mg/dL (8-24); CO2, Blood 23 mmol/L (21-32); Calcium, Blood 9.2 mg/dL (8.5-10.1); Chloride, Blood 108 mmol/L (98-108); Creatinine, Blood 0.56 mg/dL (0.40-1.00); Glomerular Filtration Rate 108 (60-); Glucose, Blood 138 mg/dL (70-99); Magnesium, Blood 1.9 mg/dL (1.6-2.4); Phosphorus, Blood 4.9 mg/dL (2.5-4.9); Potassium, Blood 3.6 mmol/L (3.5-5.5); Sodium, Blood 139 mmol/L (136-145); Triglycerides 140 mg/dL (30-160)
--- NOTE | 2024-05-03 06:31 | NUR ---
PATIENT YELLING OUT CALL THIS RN A "BITCH, YOUR A CUNT, CUNT, CUNT, CUNT. I WANT TO TALK TO A MAN, SHAHEED ESPINOZA KATHY, HELP ME, THEY KIDNAPPED ME AND TIED ME UP." THIS RN ATTEMPTED TO REORIENT PATIENT THAT "YOU ARE IN THE HOSPITAL IN [facility], YOU ARE AT [facility]". PATIENT RESPONDED "YOUR A FUCKING LIAR I AM AT HOME, SHAHEED ESPINOZA, MOM, KASHMIR". PATIENT CONTINUED TO CALL STAFF VULGAR NAMES. PATIENT LEFT IN ROOM IN SAFE POSITION. 1:1 SITTER.
[2024-05-03 07:37] VITALS: BP 153/95
--- NOTE | 2024-05-03 10:28 | NUR ---
CALLED AND SPOKE WITH DR LEIGH RE: PT DR LEIGH STATED THAT WHEN HE SPOKE WITH PT HE DID NOT BELIEVE PT WAS SUICIDAL AND STATED TO DC THE SI PRECAUTION. PHYSICIAN ALSO STATED HE WOULD COME UP AND SEE PT AGAIN TODAY.
[2024-05-03] MEDS ORDERED: TPN Consult Notification XX ONE (11:55)
--- NOTE | 2024-05-03 14:11 | NUR ---
THIS NURE WENT TO CHECK ON PT. PT WAS NOTED TO HAVE R LEG AND R ARM FREE FROM RESTRAINTS. THIS NURSE CALLED DIAGNOSTIC ASSISTANT TO ROOM TO HELP GET PT BACK IN BED AND REPOSITIONED. PT NOTED TO SCRATCH NURSE AND KICK DIAGNOSTIC ASSISTANT IN RIBS.
[2024-05-03 16:57] VITALS: BP 120/84
[2024-05-03] MEDS ORDERED: [UNRECOGNIZED DRUG - OTHER] IV SCH (17:00)
[2024-05-03] MEDS ORDERED: THIAMINE IV SCH (17:00)
--- NOTE | 2024-05-03 18:18 | NUR ---
SHIFT SUMMARY PT CONT LEVEL OF CARE. PT IS A&O TO SELF ONLY. RECEIVED DC ORDER THIS SHIFT FOR SI PREVENTION. 1:1 SITTER WAS DC THIS SHIFT WELL. PT NOTED TO HAVE VERY VULGAR LANGUAGE WITH STAFF THIS SHIFT. PT WAS GIVEN PRN MEDICATION THIS SHIFT TO HELP CALM PT WITH SOME IMPROVEMENT NOTED. PT HAS BEEN ABLE TO REMOVE HERSELF FROM RESTRAINTS THIS SHIFT WHEN STAFF NOT PRESENT. PT HAS BEEN VERBALY AND PHYSICALLY ABUSIVE TOWARDS STAFF THIS SHIFT. PT SISTER NOTED TO COME VISIT WITH PT THIS SHIFT BUT DIDNT STAY LONG D/T HER PRESENCE AGITATED PT.
[2024-05-03 20:55] VITALS: BP 131/89
--- NOTE | 2024-05-03 21:00 | NUR ---
PATIENTS SISTER REID IN AT BEDSIDE. PATIENT SLIGHTLY AGITATED AT FIRST, PATIENTS SISTER TALKING WITH HER AND PATIENT TOLD SISTER "I LOVE YOU". SISTER AT BEDSIDE FOR APPROX. 30 MINUTES. SISTER HAS PLANS TO GO BACK TO [place] 05/04/24 AFTER COMING INTO HOSPITAL TO SEE SISTER IN THE MORNING. SISTER WOULD LIKE TO TALK TO CASE MANAGEMENT IN REGARDS TO SISTER GOING TO REHAB OR BACK TO [place]/HER DISCHARGE PLAN. PER SISTER IN ORDER FOR PATIENT TO RETURN BACK TO WORK PATIENT HAS TO HAVE TREATMENT OR COMPLETE A COURSE-SISTER REFERRED TO SPEAK WITH CASE MANAGEMENT IN REGARDS TO PATIENTS DISCHARGE NEEDS-WILL RELAY TO DAYSCTFT NURSE.
[2024-05-04 04:18] VITALS: BP 105/70
--- NOTE | 2024-05-04 04:33 | NUR ---
SHIFT SUMMARY. PATIENT IS AGITATED OFF AND ON T/O THE NIGHT-PATIENT MEDICATED PER EMAR AND RESPONDED WELL. PATIENT HAS BEEN PLEASANT MOST OF SHIFT. PATIENT UP TO THE SHOWER AND ALLOWED THIS RN AND SOPHIA BLUM TO BRUSH AND BRAID HER HAIR-PATIENT THANKED KULWANT CORTES AND THIS RN FOR HELPING. PATIENT RESTING IN BED WITH RESPIRATIONS EQUAL AND UNLABORED. PATIENTS RESTRAINTS LOOSENED AND TRIAL OF PATIENT HAVING ONE ARM OUT OF RESTRAINTS-PATIENT ATTEMPTING OOB AND TAKING OFF CLOTHES, ATTEMPTING TO PULL AT LINES-[address] FOR PATIENT SAFETY. BED IS LOCKED IN THE LOWEST POSITION WITH CALL LIGHT IN REACH. CARE IS ONGOING.
[2024-05-04 06:09] LABS: BASOPHILS ABSOLUTE AUTO 0.03 K/mm3 (0.00-0.23); BASOPHILS PERCENT AUTO 1 % (0-2); EOSINOPHILS ABSOLUTE AUTO 0.07 K/mm3 (0.00-0.68); EOSINOPHILS PERCENT AUTO 1 % (0-6); Hematocrit 34.2 % (33.0-51.0); Hemoglobin 11.9 g/dL (11.5-16.0); IMMATURE GRAN ABSOLUTE AUTO 0.02 K/mm3 (0.00-0.10); IMMATURE GRAN PERCENT AUTO 0 % (0-1); LYMPHOCYTES ABSOLUTE AUTO 1.63 K/mm3 (0.84-5.20); LYMPHOCYTES PERCENT AUTO 28 % (21-46); MONOCYTES ABSOLUTE AUTO 0.47 K/mm3 (0.16-1.47); MONOCYTES PERCENT AUTO 8 % (4-13); Mean Corpuscular HGB 33.1 pg (26.0-34.0); Mean Corpuscular HGB Conc 34.8 g/dL (31.5-36.5); Mean Corpuscular Volume 95 fL (80-100); Mean Platelet Volume 9.4 fL (9.1-12.4); NEUTROPHILS ABSOLUTE AUTO 3.56 K/mm3 (1.96-9.15); NEUTROPHILS PERCENT AUTO 62 % (41-73); Platelet Count 212 K/mm3 (150-400); RDW Coefficient Variation 13.1 % (11.7-14.2); White Blood Cell Count 5.78 K/mm3 (4.00-11.30)
[2024-05-04 06:36] LABS: Albumin, Blood 2.8 g/dL (3.4-5.0); Albumin/Globulin Ratio 0.6 (0.8-1.8); Bilirubin, Total 0.4 mg/dL (0.1-1.0); Bun/Creatinine Ratio 20.4 (12.0-20.0); Calcium, Blood 9.3 mg/dL (8.5-10.1); Creatinine, Blood 0.54 mg/dL (0.40-1.00); Globulin, Blood 4.7 g/dL (2.2-4.0); Magnesium, Blood 1.7 mg/dL (1.6-2.4); Phosphorus, Blood 4.9 mg/dL (2.5-4.9); Potassium, Blood 3.6 mmol/L (3.5-5.5); Total Protein, Blood 7.5 g/dL (6.4-8.2)
[2024-05-04 07:28] VITALS: BP 112/80
[2024-05-04 16:18] VITALS: BP 108/82
--- NOTE | 2024-05-04 17:24 | NUR ---
SHIFT SUMMARY PT CONT TO BE AGITATED THIS SHIFT. MEDICATED PER EMAR WITH EFFECTIVENESS. PT DID GET OUT OF RESTRAINTS AND PULLED OUT IV NEW IV PLACED IN LFA. PT NOTED TO HAVE FAMILY PRESENT THROUGHOUT THE DAY. FAMILY WAS REFUSED WANTING TO TALK TO CARE MANAGEMENT AT THIS TIME. PT NOTED TO BE INCONT OF BOWEL AND BLADDER THIS SHIFT.
[2024-05-04 19:36] VITALS: BP 135/90
[2024-05-05 04:30] VITALS: BP 121/87
--- NOTE | 2024-05-05 05:52 | NUR ---
SHIFT SUMMARY PT ALERT TO SELF. DAY NURSE REPORTED THAT PT WAS ABLE TO PULL IV AT RIGHT BEFORE SHIFT CHANGE. SEVERAL ATTEMPTS WERE MADE BY [address] NEW IV. PPN INFUSING PER ORDERS. PT IN FOUR POINT RESTRAINTS AND HAS BEEN PULLING AT RESTRAINTS AND ATTEMPTING OOB T/O NIGHT. AT TIMES PT IS PLEASANT AND COOPERATIVE AND AT OTHER TIMES SHE IS IRRITABLE AND AGRESSIVE. ZYPREXA AND HALDOL GIVEN PER EMAR D/T PT YELLING AND AGGITATION. PT ABLE TO WIGGLE DOWN IN BED AND WAS ABLE TO GET OUT ONE WRIST RESTRIANT TWICE T/O NIGHT. ATTENDS CHANGED PRN. FOAM DRESSING PLACED ON HEALS FOR PROTECTION AND FOAM DRESSING PLACED ON BILATERAIL ELBOWS D/T REDNESS. PT'S MOTHER AT BEDSIDE FOR A BRIEF VISIT IN EVENING. BED ALARM ON. BED IN LOWEST POSITION AND CALL LIGHT IN REACH.
[2024-05-05 06:19] LABS: Bun/Creatinine Ratio 15.9 (12.0-20.0); Calcium, Blood 9.6 mg/dL (8.5-10.1); Creatinine, Blood 0.44 mg/dL (0.40-1.00); Magnesium, Blood 1.6 mg/dL (1.6-2.4); Phosphorus, Blood 5.2 mg/dL (2.5-4.9); Potassium, Blood 3.8 mmol/L (3.5-5.5)
[2024-05-05 07:40] VITALS: BP 128/89
[2024-05-05 11:51] LABS: Base Excess Venous 1.4 mmol/L; Bicarbonate Venous 25.2 mmol/L (24.0-30.0); PCO2 Venous 41.6 mmHg (38-42)
[2024-05-05 15:01] VITALS: BP 110/82
--- NOTE | 2024-05-05 16:05 | NUR ---
SHIFT SUMMARY PT AWAKE AT START OF SHIFT, DURING SHIFT REPORT. PT IS VERY CONFUSED AND AGITATED WHEN AWAKE. IV PUMP CONSTANTLY OCCLUDED D/T AGITATION. PT SLEPT, RESTED QUIETLY, ONLY BRIEFLY TO PRESENT THIS SHIFT. PT'S MOM IN TO VISIT IN AM AND TO RETURN THIS AFTERNOON. PT REFUSING TO EAT BREAKFAST, BUT DID EAT 4 BITES OF CHICKEN AND 1 BITE OF VEGTABLES FOR LUNCH, THEN REPORTING "NO MORE". PT CHANGED FOR BLADDER INCONTINENCE; PUREWICK THEN PLACED TO HELP KEEP SKIN DRY. MEPILEX PLACED ON COCCYX, WHICH IS RED. DR VALENTINO IN TO SEE PT IN AM. SPEECH IS MOSTLY GARBLED. SISTER CALLED TO CK ON PT; UPDATE GIVEN. BED ALARM ON FOR SAFETY. CALL LT IN REACH.
[2024-05-05 19:49] VITALS: BP 112/74
[2024-05-06 02:53] VITALS: BP 111/75
[2024-05-06 05:04] LABS: BASOPHILS ABSOLUTE AUTO 0.02 K/mm3 (0.00-0.23); BASOPHILS PERCENT AUTO 0 % (0-2); EOSINOPHILS ABSOLUTE AUTO 0.06 K/mm3 (0.00-0.68); EOSINOPHILS PERCENT AUTO 1 % (0-6); Hematocrit 37.8 % (33.0-51.0); Hemoglobin 13.1 g/dL (11.5-16.0); IMMATURE GRAN ABSOLUTE AUTO 0.05 K/mm3 (0.00-0.10); IMMATURE GRAN PERCENT AUTO 1 % (0-1); LYMPHOCYTES ABSOLUTE AUTO 2.27 K/mm3 (0.84-5.20); LYMPHOCYTES PERCENT AUTO 38 % (21-46); MONOCYTES ABSOLUTE AUTO 0.46 K/mm3 (0.16-1.47); MONOCYTES PERCENT AUTO 8 % (4-13); Mean Corpuscular HGB 33.2 pg (26.0-34.0); Mean Corpuscular HGB Conc 34.7 g/dL (31.5-36.5); Mean Corpuscular Volume 96 fL (80-100); Mean Platelet Volume 9.7 fL (9.1-12.4); NEUTROPHILS ABSOLUTE AUTO 3.05 K/mm3 (1.96-9.15); NEUTROPHILS PERCENT AUTO 52 % (41-73); Platelet Count 281 K/mm3 (150-400); RDW Coefficient Variation 12.6 % (11.7-14.2); RDW Standard Deviation 45.4 fL (35.1-46.3); Red Blood Cell Count 3.94 M/mm3 (3.80-5.20); White Blood Cell Count 5.91 K/mm3 (4.00-11.30)
[2024-05-06 05:36] LABS: Albumin, Blood 3.3 g/dL (3.4-5.0); Albumin/Globulin Ratio 0.6 (0.8-1.8); Bilirubin, Direct 0.1 mg/dL (0.0-0.3); Bilirubin, Indirect 0.2 mg/dL (0.1-0.7); Bilirubin, Total 0.3 mg/dL (0.1-1.0); Bun/Creatinine Ratio 19.7 (12.0-20.0); Calcium, Blood 10.5 mg/dL (8.5-10.1); Creatinine, Blood 0.56 mg/dL (0.40-1.00); Globulin, Blood 5.2 g/dL (2.2-4.0); Potassium, Blood 3.8 mmol/L (3.5-5.5); Total Protein, Blood 8.5 g/dL (6.4-8.2)
--- NOTE | 2024-05-06 05:53 | NUR ---
SHIFT SUMMARY PT ALERT TO SELF. PT CONTINUES TO PULL AT RESTRAINTS AND ATTEMPT OOB. PT WAS ABLE TO GET OUT OF WRIST RESTRAINTS TWICE. BED ALARM HAS BEEN ON T/O NIGHT. AT TIMES, PT WILL YELL AND SWEAR AT STAFF. PT CONFUSED AND THOUGHT SHE NEEDED TO GET TO WORK AND THEN SCHOOL. PT STATED, "COME ON TAKE ME TO WORK OR I'LL KILL MYSELF" PT REMINDED SHE WAS IN THE HOSPITAL BUT THAT ONLY FRUSTRATED PT. HALDOL GIVEN ONCE WITH NO NOTICABLE EFFECT. PT AWAKE T/O NIGHT BUT WAS FINALLY ABLE TO SLEEP AROUND O500. PPN INFUSING PER EMAR. VSS. BED IN LOWEST POSITION AND CALL LIGHT IN REACH.
[2024-05-06 07:45] VITALS: BP 112/69
[2024-05-06 16:30] VITALS: BP 109/68
[2024-05-06] MEDS ORDERED: THIAMINE IV SCH ×2 (17:00)
[2024-05-06] MEDS ORDERED: [UNRECOGNIZED DRUG - OTHER] IV SCH ×2 (17:00)
--- NOTE | 2024-05-06 18:47 | NUR ---
SHIFT SUMMARY PT CIWA T/O SHIFT HAS REMAINED CONSITENT AT 9, MEDICATED WITH 50MG LIBRIUM X'S 2. WAS ABLE TO DC BLE RESTATINTS AT APROX 1549 PT HAS APPEARED MORE RELAXED AND CALM AND SLEPT FOR REMAINDER OF SHIFT. DOES SEEM TO BE MORE AGGITATED AT SHIFT CHANGE.
[2024-05-07 02:42] VITALS: BP 93/64
[2024-05-07 06:01] LABS: Bun/Creatinine Ratio 27.4 (12.0-20.0); Calcium, Blood 9.7 mg/dL (8.5-10.1); Creatinine, Blood 0.66 mg/dL (0.40-1.00); Magnesium, Blood 1.7 mg/dL (1.6-2.4); Phosphorus, Blood 6.5 mg/dL (2.5-4.9); Potassium, Blood 4.4 mmol/L (3.5-5.5)
--- NOTE | 2024-05-07 07:26 | NUR ---
SHIFT SUMMARY: PATIENT IS A&O TO SELF. ATTEMPTING TO GET OOB WITH OUT ASSISTANCE AT START OF SHIFT AND WAS UNDIRECTABLE. PATIENT REFUSES PO INTAKE AT TIMES, PPN IS INFUSING PER MD ORDER. PATIENT ONLY TAKING SIPS OF WATER AT TIMES. INC. OF STOOL AND URINE. PATIENT WAS GIVEN PRN HALDOL IV X2 WITH GOOD EFFECT. PATIENT IS UNDIRECTABLE, UNCOOPERATIVE WITH CARE AND SWEARING AT STAFF. PATIENT REMAINS IS 4 POINT SOFT RESTRIANTS.
[2024-05-07 07:37] VITALS: BP 104/70
[2024-05-07 14:54] VITALS: BP 124/79
--- NOTE | 2024-05-07 16:34 | NUR ---
SHIFT SUMMARY ALERT, ORIENTED TO SELF ONLY. DENIES CP/PRESSURE, HEADACHE, DIZZINESS, OR SOB. DENIES ANY PAIN AT THIS TIME. PATIENT CONTINUED TO BE IN 4 POINT SOFT RESTRAINTS T/O SHIFT, ASSESSED Q2HRS. PPN RUNNING AT 111MLS/HR. PT BECAME AGITATED DURING A BED BATH AND CUSSED AT STAFF, LIBRIUM AND HALDOL ADMINISTERED PER EMAR. SLEPT OFF AND ON T/O SHIFT. CURRENTLY RESTING IN BED AND TALKING TO HERSELF. BED IN THE LOWEST POSITION. CALL LIGHT WITHIN REACH.
[2024-05-07] MEDS ORDERED: CUSO4 P HYD IV SCH (17:00)
[2024-05-07] MEDS ORDERED: THIAMINE HCL IV SCH (17:00)
[2024-05-07] MEDS ORDERED: [UNRECOGNIZED DRUG - OTHER] IV SCH (17:00)
[2024-05-07] MEDS ORDERED: ZINC SULF IV SCH (17:00)
[2024-05-07 19:57] VITALS: BP 105/65
[2024-05-07 21:12] VITALS: BP 116/80
[2024-05-08 02:38] VITALS: BP 129/89
--- NOTE | 2024-05-08 03:55 | NUR ---
SHIFT SUMMARY: PATIENT CONTINUES TO BE CONFUSED, IMPULSIVE AND PULLING ON LINES. PATIENT HAS REMOVED TWO IV SITE THIS SHIFT. THE SECOND IV PATIENT PULLED OUT INFILTRATED PPN FLUID. PHARMACIST WAS CALLED FOR DIRECTIONS ON CARE OF THE INFILTRATE. PHARMACIST DIRECTED [employer] TO CALL MD TO REPORT INFILTRATE AND FURTHER CARE DIRECTIONS.
[2024-05-08 06:10] LABS: Magnesium, Blood 1.8 mg/dL (1.6-2.4)
[2024-05-08 06:11] LABS: Calcium, Blood 9.9 mg/dL (8.5-10.1); Creatinine, Blood 0.56 mg/dL (0.40-1.00); Phosphorus, Blood 4.5 mg/dL (2.5-4.9); Potassium, Blood 3.8 mmol/L (3.5-5.5)
[2024-05-08 07:13] VITALS: BP 124/87
--- NOTE | 2024-05-08 12:10 | NUR ---
PER DR. VALENTINO CALLED PSYCH CONSULT REPEAT. SPOKE WITH DR. SCHAEFER ON 05/08/24 AT 1200.
[2024-05-08] MEDS ORDERED: Haloperidol Lactate Inj. 5 MG/ML Injection IM PRN (12:16)
[2024-05-08 15:09] VITALS: BP 119/70
--- NOTE | 2024-05-08 18:28 | NUR ---
SHIFT SUMMARY: PT A/O TO SELF. PT STARTED THIS SHIFT YELLING OUT AND COMBATIVE WITH STAFF. PO LIBRIUM GIVEN PER EMAR c LITTLE EFFECT. DR. VALENTINO ASKED STAFF TO REACH OUT TO PSYCH FOR FOLLOW-UP IT HAS BEEN SEVERAL DAYS FOR W/D AND BELIEVES IT IS MORE BEHAVIOR RELATED RATHER THAN W/D. REACHED OUT TO PSYCH STATING THEY WOULD BE IN TO SEE PT TOMORROW 05/09/24. 1:1 SITTER CALLED IN THIS SHIFT D/T PT GETTING OUT OF RESTRAINTS SEVERAL TIMES. IV HALDOL CHANGED TO IM. 2MG IM HALDOL GIVEN WITH GOOD EFFECT. TPN INFILTRATION IN LARM WRAPPED SEVERAL TIMES THIS SHIFT AND WRAPPED WITH WARM BLANKET. FOUR POINT RESTRAINTS IN PLACE. CALL LIGHT IN REACH. BED IN LOWEST POSITION.
[2024-05-08 20:08] VITALS: BP 127/82
--- NOTE | 2024-05-09 01:52 | NUR ---
ANXIETY/MENTATION: PATIENT CONTINUES TO BE CONFUSED, PARANOID, STRAINING AGAINST FOUR POINT RESTRAINTS. PRN MELATONIN AND LIBRIUM WERE GIVEN WITH POOR FAIR EFFECT. IM HALDOL WAS THEN GIVEN WITH GOOD EFFECT. SITTER IN AT BEDSIDE TO ENSURING IV LINE PROTECTION FROM PATIENT PULLING THE LINE OUT. PATIENT ALSO REPORTED GENERALIZED PAIN BUT IS UNABLE TO RATE PAIN. TYLENOL WAS GIVE WITH FAIR EFFECT.
--- NOTE | 2024-05-09 04:32 | NUR ---
SHIFT SUMMARY: PATIENT SLEPT FOR APPROXIMATELY 3 HOURS AND WOKE AT 0400 YELLING AND TRYING TO GET OOB STRAINING AGAINST RESTRAINTS, "HELP ME UP I HAVE TO GET READY FOR WORK!" ROOM SERVICE FOOD SERVICE ATTENDANT WAS UNABLE TO SETTLE PATIENT AFTER INC. CARE AND REPOSITIONING. PATIENT CONTINUED YELLING AND TRYING TO GET OUT OF THR RESTRAINTS. IM HALDOL WAS GIVEN A SECOND TIME. SITTER REMAINS AT BEDSIDE AND BED ALRM IS ON. PPN IS INFUSING PER MD ORDER. BLOOD GLUCOSE IS STABLE. NO FURTHER CHECKS WILL BE NEEDED.
[2024-05-09 06:31] LABS: Bun/Creatinine Ratio 30.4 (12.0-20.0); Calcium, Blood 10.2 mg/dL (8.5-10.1); Creatinine, Blood 0.66 mg/dL (0.40-1.00); Potassium, Blood 4.3 mmol/L (3.5-5.5)
[2024-05-09 07:19] VITALS: BP 93/56
[2024-05-09 07:20] VITALS: BP 93/56
[2024-05-09 07:21] VITALS: BP 93/56
--- NOTE | 2024-05-09 11:20 | NUR ---
REMOVED RESTRAINTS ATTEMPTED TO REMOVE RESTRAINTS THIS AM AT 0700 DUE TO PATIENT BEING COOPERATIVE WITH CARE. PATIENT PLEASNTLY CONFUSED AT THE TIME, NOT PULLING AT LINES AND DIRECTABLE. PATIENT WAS ABLE TO TOLERATE NOT BEING IN FOUR POINT SOFT LIMB RESTRAINTS UNTIL 1052, WHEN PATIENT'S AGITATION INCREASED. PATIENT NOT FOLLOWINF DIRECTIONS, CONTINUING TO ATTEMPT TO AMBULATE AND SEARCH FOR BELINGINGS, LOOKING UNDER BED, ATTEMPTING TO CRAWL UNDER HER BED TO LOOK FOR HER "[place]USY [place]IRT". PATIENT NOT ABLE TO FOLLOW DIRECTIONS, HALDOL GIVEN AND INMEFFECTIVE. DR. ROBERSON CALLED AND NEW ORDER FOR SOFT LIMB RESTRAINTS PUT BACK IN PLACE TO ALL FOUR EXTREMITIES. PATIENT NOW CALLING OUT INTERMIITENTLY TO GO HOME. WILL CONTINUE TO MONITOR.
[2024-05-09] MEDS ORDERED: OLANZapine 10 MG Vial IM PRN (12:00)
[2024-05-09] MEDS ORDERED: Haloperidol Lactate Inj. 5 MG/ML Injection IM PRN (12:10)
[2024-05-09] MEDS ORDERED: TPN Consult Notification XX ONE (14:05)
[2024-05-09 15:34] VITALS: BP 120/79
--- NOTE | 2024-05-09 15:51 | NUR ---
MD MEDICATION REQUEST DR. ROBERSON CALLED REQUESTING HOME MEDS BE UPDATED, AFTER SPEAKING WITH SISTER, CHIDI, PATIENT DOES NOT TAKE BUPROPRION AT HOME. I DISCUSSED WITH PHARMACY AND THEY STATED SHE DID HAVE A PRESCRIPTION FOR THE MEDICATION BUT POSSIBLE SHE NEVER WAS ADMINISTERED IT AT HOME. MD AWARE, PSYCH MEDICATION ADJUSTED. PATIENT CONTINUES TO HAVE DIFFICULTY FOLLOWING DIRECTIONS AND NOT MEETING REQUIREMENTS TO REMOVE FOUR POINT SOFT LIMB RESTRAINTS DUE TO PULLING LINES, ATTEMPTING TO GET OUT OF BED UNSAFELY, AND INABILITY TO FOLLOW COMMANDS. WILL CONTINUE TO MONITOR.
--- NOTE | 2024-05-09 16:34 | NUR ---
SHIFT SUMMARY PATIENT ALERT AND ORIENTED TO SELF, CONFUSED, NOT DIRECTABLE. PATIENT PLACED BACK IN RESTRAINTS THIS MORNING AFTER FAILED ATTEMPT TO REMOVE AT 0700. FOUR POINT SOFT LIMB RESTRAINTS RE-APPLIED AT 1052 WITH NEW ORDERS PLACED. HALDOL ADMINISTERED X2 PRN DUE TO AGITATION. PATIENT HYPOTENSIVE THIS AM SBP IN 90s, SCHEDULED BLOOD PRESSURE MEDS HELD. PSYCH ASSESSED PATIENT THIS MORNING, NO NEW MEDICATIONS AT THAT TIME. DR. ROBERSON ADJUSTED MEDICATIONS THIS AFTERNOON. 1:1 SITTER AT BEDSIDE. PATIENT CONTINUES TO ATTEMPT TO GET OUT OF BED WITH RESTRAINTS ON, REFUSING TO FOLLOW DIRECTIONS, NOT ABLE TO BE DISTRACTED EFFECTIVELY. PPN INFUSING PER MAR, NO OTHER CONCERNS THIS SHIFT.
[2024-05-09] MEDS ORDERED: FOLIC ACID IV SCH (17:00)
[2024-05-09] MEDS ORDERED: CUSO4 P HYD IV SCH (17:00)
[2024-05-09] MEDS ORDERED: SODIUM CHLORIDE IV SCH (17:00)
[2024-05-09] MEDS ORDERED: [UNRECOGNIZED DRUG - OTHER] IV SCH (17:00)
[2024-05-09] MEDS ORDERED: ZINC SULF IV SCH (17:00)
[2024-05-09] MEDS ORDERED: THIAMINE HCL IV SCH (17:00)
[2024-05-09 19:57] VITALS: BP 117/72
[2024-05-09] MEDS ORDERED: Haloperidol 1 MG Tab PO SCH (21:00)
[2024-05-09] MEDS ORDERED: Divalproex Sodium 125 MG CAP PO SCH (21:00)
[2024-05-09] MEDS ORDERED: buPROPion HCL 150 MG TAB.SR.12H PO SCH (21:00)
--- NOTE | 2024-05-10 06:36 | NUR ---
SHIFT SUMMARY: DOUGIE IS A&OX1-2. SHE AROUSES EASILY AND HAS BEEN COOPERATIVE WITH STAFF FOR THE LAST FEW HOURS. TRIALING OUT OF RESTRAINTS. PT RESTING QUIETLY WITH EYES CLOSED AND EVEN, UNLABORED RESPIRATIONS. IV TO R FOREARM PATENT, PPN INFUSING. ATTENDS IN PLACE, PT WITH MIXED INCONTINENCE, PT HAS VERBALIZED THE NEED TO URINATE AT TIMES THIS SHIFT. PT'S MOTHER REQUESTED DISCHRGE TO [facility] IF POSSIBLE. PT'S SISTER, ARLETH, VISITED THIS SHIFT. UNFORTUNATELY, PT BECAME AGITATED DURING ARELTH'S VISIT. PT REASSURED THAT SHE COULD CHOOSE WHICH VISITORS TO ALLOW. PT IS LYING IN BED WITH THE CALL LIGHT IN REACH. BED ALARM ON. WILL GIVE REPORT TO DAY SHIFT RN.
[2024-05-10 08:36] VITALS: BP 112/77
--- NOTE | 2024-05-10 08:54 | NUR ---
PATIENT STARTED MORNING OUT OF RESTRAINTS, PATIENT BEGAN TO ESCALATE, UNABLE TO REDIRECT OR REORIENT, PATIENT BECAME VERBALLY ABUSIVE AND FIXATED ON GOING HOME, PATIENT VERY UNSTEADY ON FEET, 3 RN IN ROOM, MEDICATED WITH IM HALDOL, PATIENT SWINGING AT STAFF WITH ARMS AND LEGS, 4 POINT RESTRAINTS REAPPLIED. PATIENT RESTING NOW, NO DISTRESS, RESPS EVEN AND NONLABORED, 1:1 AT DOOR
[2024-05-10 10:16] LABS: Triglycerides 194 mg/dL (30-160)
[2024-05-10 10:17] LABS: Bun/Creatinine Ratio 33.9 (12.0-20.0); Calcium, Blood 9.3 mg/dL (8.5-10.1); Creatinine, Blood 0.44 mg/dL (0.40-1.00); Potassium, Blood 5.6 mmol/L (3.5-5.5)
[2024-05-10 10:22] LABS: Albumin/Globulin Ratio 0.6 (0.8-1.8); Bilirubin, Direct 0.1 mg/dL (0.0-0.3); Bilirubin, Indirect 0.1 mg/dL (0.1-0.7); Bilirubin, Total 0.2 mg/dL (0.1-1.0); Globulin, Blood 4.8 g/dL (2.2-4.0); Total Protein, Blood 7.8 g/dL (6.4-8.2)
[2024-05-10 11:08] LABS: Magnesium, Blood 1.7 mg/dL (1.6-2.4); Phosphorus, Blood 4.7 mg/dL (2.5-4.9)
--- NOTE | 2024-05-10 15:48 | NUR ---
pt stating she has to get up to go to work because its almost 4 am she has to work,and feed her 4 dogs. nurse offered medication to pt she stated "they arent open until 10" pt is not appropriatly answering questions, she makes statements that do not pertain to the topic.
[2024-05-10] MEDS ORDERED: THIAMINE HCL IV SCH ×2 (17:00)
[2024-05-10] MEDS ORDERED: ZINC SULF IV SCH ×2 (17:00)
[2024-05-10] MEDS ORDERED: FOLIC ACID IV SCH ×2 (17:00)
[2024-05-10] MEDS ORDERED: [UNRECOGNIZED DRUG - OTHER] IV SCH ×2 (17:00)
[2024-05-10] MEDS ORDERED: SODIUM CHLORIDE IV SCH ×2 (17:00)
[2024-05-10] MEDS ORDERED: CUSO4 P HYD IV SCH ×2 (17:00)
[2024-05-10 17:12] VITALS: BP 119/88
--- NOTE | 2024-05-10 18:07 | NUR ---
PATIENT MORE ALERT THIS PM, NOT ORIENTED TO TIME PLACE OR PERSON. PATIENT WANTING TO LEAVE, DR ROBERSON ROUNDED ON PATIENT AGAIN, PATIENT CONTINUES TO THREATEN STAFF SAYING "I WOULD HURT YOU AND DONT EVER THINK I WOULDNT". CONTINUES TO BE UNABLE TO ORIENTED OR FOLLOW DIRECTIONS. FAMILY VISITED SHORTELY TODAY, DR ROBERSON SPOKE WITH FAMILY AND DR TESFAYE PSYCHIATRY STATED HE WOULD CALL FAMILY, CASE MANAGEMENT AND NURSING SOCIOLOGY RESEARCH ASSISTANT AWARE OF FAMILY. NEW TUBGING AND NEW PPN BAG INFUSING, FOUR POINT RESTRAINTS ON, CSM+, 1:1 AT BEDSIDE, MEDICATED FOR AGGITATION/AGGRESSION, SWINGING AT STAFF AND SPITTING AT STAFF WITH HALDOL IM THIS AM, PATIENT BEING NONPHYSICAL NOW BUT VERBALLY ABUSIVE. CALL LIGHT WITH IN REACH, WILL RELAY TO PM RN
[2024-05-10 20:38] VITALS: BP 147/124
--- NOTE | 2024-05-11 05:54 | NUR ---
SHIFT SUMMARY: DOUGIE AROUSES EASILY AND IS ORIENTED TO SELF. PPN INFUSING IN LEFT HAND IV. SHE IS TOLERATING CLEAR LIQUIDS WELL THIS SHIFT. CURRENTLY TRIALING OUT OF FOUR POINT SOFT RESTRAINTS. PT WAS AGREEABLE TO USE THE BEDSIDE COMMODE THIS MORNING, PULL-UP IN PLACE. PT IS A STANDBY ASSIST, UNSTEADY GAIT WITH OCCASIONAL LOSS OF BALANCE. PT DID WALK TO THE DOOR OF HER ROOM THIS SHIFT. SHE STATED THAT SHE NEEDED TO PUT FOOD IN THE CROCKPOT. ONCE PT VISUALIZED HALLWAY, SHE RETURNED TO HER BED. PT HAS BEEN MOSTLY CONTINENT THIS SHIFT WITH OCCASIONAL STRESS INCONTINENCE. SHE HAS COMMUNICATED WITH STAFF WHEN SHE NEEDS TO URINATE. PT WAS COOPERATIVE WITH THE IV START. SHE IS LYING IN BED WITH HER EYES CLOSED AND EVEN, UNLABORED RESPIRATIONS. WILL GIVE REPORT TO DAY SHIFT RN.
[2024-05-11 07:32] VITALS: BP 98/62
[2024-05-11] MEDS ORDERED: Lisinopril 5 MG Tab PO SCH (09:00)
[2024-05-11 10:33] LABS: Magnesium, Blood 1.9 mg/dL (1.6-2.4)
[2024-05-11 10:40] LABS: Bun/Creatinine Ratio 29.6 (12.0-20.0); Calcium, Blood 8.8 mg/dL (8.5-10.1); Creatinine, Blood 0.54 mg/dL (0.40-1.00); Phosphorus, Blood 4.7 mg/dL (2.5-4.9); Potassium, Blood 3.4 mmol/L (3.5-5.5)
[2024-05-11 15:01] VITALS: BP 116/91
[2024-05-11] MEDS ORDERED: THIAMINE HCL IV SCH (17:00)
[2024-05-11] MEDS ORDERED: FOLIC ACID IV SCH (17:00)
[2024-05-11] MEDS ORDERED: CUSO4 P HYD IV SCH (17:00)
[2024-05-11] MEDS ORDERED: ZINC SULF IV SCH (17:00)
[2024-05-11] MEDS ORDERED: SODIUM CHLORIDE IV SCH (17:00)
[2024-05-11] MEDS ORDERED: [UNRECOGNIZED DRUG - OTHER] IV SCH (17:00)
--- NOTE | 2024-05-11 17:41 | NUR ---
GAVE REPORT TO KELLIE DONOVAN. KELLIE ASSUMED CARE OF PT.
[2024-05-11 23:18] VITALS: BP 111/83
[2024-05-12 04:58] VITALS: BP 96/73
--- NOTE | 2024-05-12 05:58 | NUR ---
TUBER HELPER SUMMARY PT HAS BEEN REQUIRING 1:1 SITTER; WHICH SHE DID NOT HAVE THIS SHIFT. PT IS A/OX TO SELF AND FAMILY. PT CONTIUES TO HAVE AUDIO AND VISUAL HALLUCINATIONS. PT ATTEMPTING OOB FREQUENTLY T/O THE NIGHT. PT HAS CONTINUOUS PPN INFUSING PT CONTINUES TO REFUSE TO EAT. PT IS MOSTLY NOT DIRECTABLE. PT ATEMPT OOB APROX AT MIDNIGHT AND STUMBLED BACKWARD--FALLING BACK ONTO THE BED. PT NOT DIRECTABLE BACK TO BED OR STAY INBED/CHAIR; DUE TO UNSTEADINESS, AMS, FALL RISK, IV LINES, AND AGITATION; PT PLACED IN MCKENZIE VEST AT 0030; ORDER OBTAINED FROM DR PACHECO AT 0045. BED ALARM IN PLACE AND CALL LIGHT INREACH AT ALL TIMES. PT INSISTING SHE IS SEEING PEOPLE SHE KNOWS, HEARING A CAT IN THE BATHROOM; ATTEMPTS TO REORIENT HER AT TIMES PROVOKE AGITATION. ORAL NUTRITION AND DRINK OFFERED T/O THE SHIFT. PT WAKEFUL T/O THE NIGHT WITH SCATTERED PERIODS OF SLEEP.
[2024-05-12 07:24] VITALS: BP 136/91
[2024-05-12 09:53] LABS: Bun/Creatinine Ratio 26.5 (12.0-20.0); Calcium, Blood 8.7 mg/dL (8.5-10.1); Creatinine, Blood 0.53 mg/dL (0.40-1.00); Magnesium, Blood 2.6 mg/dL (1.6-2.4); Phosphorus, Blood 3.9 mg/dL (2.5-4.9); Potassium, Blood 4.1 mmol/L (3.5-5.5)
[2024-05-12 15:48] VITALS: BP 113/71
--- NOTE | 2024-05-12 16:29 | NUR ---
SHIFT SUMMARY MS ESPAÑA IS ORIENTATED TO SELF, TO DATE AND TO [facility]. SHE IS NOT ORIENTATED TO SITUATION. SHE IS VERY CONFUSED AND DIFFICULT TO REDIRECT. SHE HAS MCKENZIE RESTRAINT ON AND HAS TRIED TO GET UP OUT OF THE BED AND THE CHAIR MULTIPLE TIMES. WHEN SHE STANDS SHE IS VERY UNSTEADY. SHE HAS PULLED A LOT AT HER MCKENZIE RESTRAINT AND MANAGED TO REMOVE IT AT ONE POINT. POND SCALER SET UP. HER MOTHER AND HER DAUGHTER VISITED TODAY. POND SCALER AND MCKENZIE RESTRAINT USE EXPLAINED TO PATIENTS MOTHER AND SHE VERBALISED UNDERSTANDING AND AGREEMENT. MS ESPAÑA ALLOWED POWERGLIDE PLACEMENT THIS MORNING AND HAS CONTINUOUS PPN. SHE REFUSED BREAKFAST BUT DID TAKE A FEW BITES OF LUNCH AND DRANK A CARTON OF MILK. IN CHAIR NOW WITH CHAIR ALARM AND CALL LIGHT IN REACH.
[2024-05-12 19:38] VITALS: BP 122/79
[2024-05-12] MEDS ORDERED: Divalproex Sodium 250 MG TABLET.DR PO SCH (21:00)
[2024-05-13] MEDS ORDERED: Calcium Carbonate 500 MG Tab Chew PO PRN (02:00)
[2024-05-13 02:26] VITALS: BP 129/82
[2024-05-13] MEDS ORDERED: OLANZapine 10 MG Vial IM ONE (04:45)
--- NOTE | 2024-05-13 05:49 | NUR ---
ETCHER APPRENTICE PHOTOENGRAVING SUMMARY PT IS ALERT AND ORIENTED TO SELF. PT CONTINUES TO HAVE AUDIBLE AND VISIUAL HALLUCINATIONS. PT IS SOMETIMES ABLE TO STATE WHERE SHE IS AND OTHER TIMES NOT. PT INCREASING IN RESTLESSNESS AND AGITATION; PT IN MCKENZIE VEST AT START OF SHIFT. PT ATTEMPTING TO PULL OFF MCKENZIE AND GETTING OUT OF BED. PT NOT DIRECTABLE. PT INSISTING ON GOING "OUTSIDE" OR "LEAVING" TO CHECK ON KIDS AND GRANDKIDS. ATTEMPTS TO ASSURE PT OF FAMILY WELLBEING UNSUCCESSFUL. PT INCREASING IN AGITATION/AGGRESSION TOWARD STAFF. PLACED 4 POINT SOFT RESTRANTS FOR SAFETY AT 2114; ORDER OBTAINED FROM DR TORRES AT 2129. PT WAKEFUL AND CALLING OUT ALL NIGHT LONG. PT HAS A CAMERA IN PLACE. PULLING ON RESTRAINTS TO POINT OF GETTING OUT OF THEM. PT REMAINS NOT DIRECTABLE. CALL TO HYDRAULIC BARKER OPERATOR/DR PACHECO; NEW ORDER FOR 1X ZYPREXA 10MG. ADMINISTERED IN RIGHT THIGH. OF THIS NOTE; PT CONTINUES TO CALL OUT NAMES OF PEOPLE, "HELP ME" AND NON SENSICAL RAMBLING. PT SLIGHTLY MORE RELAXED AGAINST RESTRAINTS. PT HAS CONTINUOUS PPN IN NEVIN POWER GLIDE. ENCOURAGING PT TO DRINK WATER. PT NOT EATING; NUTRITION OFFERED. CALL LIGHT ACCESSIBLE AND BED ALARM IN PLACE.
[2024-05-13 08:00] VITALS: BP 122/87
[2024-05-13 10:28] LABS: Bun/Creatinine Ratio 30.4 (12.0-20.0); Calcium, Blood 9.3 mg/dL (8.5-10.1); Creatinine, Blood 0.49 mg/dL (0.40-1.00); Magnesium, Blood 1.8 mg/dL (1.6-2.4); Phosphorus, Blood 3.7 mg/dL (2.5-4.9); Potassium, Blood 3.6 mmol/L (3.5-5.5)
--- NOTE | 2024-05-13 15:05 | NUR ---
SHIFT SUMMARY MS ESPAÑA HAS BEEN VERY RESTLESS TODAY. SHE HAS BEEN IN 4 POINT SOFT RESTRAINTS FOR SAFETY. HER FAMILY HAVE VISITED HER AND ARE AWARE OF THE REASONS FOR THE RESTRAINTS. PT HAS FREQUENTLY PULLED AGAINST THE RESTRAINTS, MANAGED TO GET OUT OF THE WRIST RESTRAINTS THREE TIMES. DISPATCH MACHINE RUNNER IN ROOM AND BED ALARM ON ASWEL. DISPATCH MACHINE RUNNER HAS ALARMED SEVERAL TIMES. MS ESPAÑA HAS CLOSED HER EYEY BRIEFLY BUT HAS NOT HAD PERIODS OF SLEEP. HER SPEACH IS DIFFICULT TO UNDERSTAND/SLURRED. SHE IS VERY UNSTEADY WHEN HELPED UP TO THE BEDSIDE COMMODE. DIFFICULT TO REDIRECT. SHE HAS SWUNG AT STAFF, BUT IS MOSTLY RESTLESS. DR ROBERSON MET WITH FAMILY/PATIENT. PLAN FOR HEAD MRI W/WO CONTRAST TOMORROW. MS ESPAÑA HAD NAUSEA AND VERY SMALL EMESIS THIS MORNING. SHE HAS TAKEN SIPS OF WATER, ABOUT 1/2 CARTON OF MILK AND JUST A FEW BITES OF FOOD. PPN CONTINUES. BED LOW, CALL LIGHT IN REACH.
[2024-05-13 15:40] VITALS: BP 139/87
[2024-05-13 15:50] LABS: HEPATITIS A ANTIBODY, IGM Negative (Negative); HEPATITIS B CORE ANTIBODY, IGM Negative (Negative); HEPATITIS B SURFACE ANTIGEN Negative (Negative); HEPATITIS C AB CIA INTERP High Pos (Negative); HEPATITIS C ANTIBODY CIA INDEX >11.00 IV
[2024-05-13 16:26] LABS: Thyroid Stimulating Hormone 2.43 uIU/mL (0.360-4.800)
[2024-05-13 19:48] VITALS: BP 126/83
[2024-05-14] MEDS ORDERED: Haloperidol Lactate Inj. 5 MG/ML Injection IM ONE (01:00)
[2024-05-14] MEDS ORDERED: OLANZapine 10 MG Vial IM ONE (01:00)
[2024-05-14 04:09] VITALS: BP 135/83
[2024-05-14 05:48] LABS: Albumin, Blood 3.1 g/dL (3.4-5.0); Albumin/Globulin Ratio 0.6 (0.8-1.8); Bilirubin, Total 0.3 mg/dL (0.1-1.0); Bun/Creatinine Ratio 35.1 (12.0-20.0); Calcium, Blood 9.6 mg/dL (8.5-10.1); Creatinine, Blood 0.48 mg/dL (0.40-1.00); Globulin, Blood 4.9 g/dL (2.2-4.0); Phosphorus, Blood 4.2 mg/dL (2.5-4.9); Potassium, Blood 3.7 mmol/L (3.5-5.5)
[2024-05-14 07:39] VITALS: BP 126/80
--- NOTE | 2024-05-14 08:09 | NUR ---
FRENCH DRAWER SUMMARY PT A/OX TO SELF. PT REMAINS AWAKE T/O THE NIGHT--PT DID NOT SLEEP AT ALL. PT CONTINUES TO BE CONFUSED WITH HALLUCINATIONS. THE PATIENT'S SPEECH IS MORE SLURRED/DIFFICULT TO UNDERSTAND. PT REMAINS IN SOFT RESTRAINTS DUE TO RISK OF FALLING/INJURY. PT TAKEN OUT OF RESTRANTS TO ASSIST TO BSC MULTIPLE TIMES. THIS DONE WITH TWO STAFF PRESENT. PT IS NOT DIRECTABLE AND IMPULSIVE. WHEN THE PT IS IN RESTRAINS SHE IS CONSTANTLY PULLING AND ATTEMPTING TO LEVERAGE HER BODY UP/OOB. VIRTUAL BRASS POLISHER IS IN THE ROOM. PHONE CALL TO CHILD & ADOLESCENT PSYCHIATRIST/DR TENORIO; ADVISED OF PT FIGHTING RESTRAINTS, INCREASED HR, AND INCREASED RR. ADVISED PT HAS BEEN TAKING HALDOL AND PRN ZYPREXA W/O GOOD RESULT. THE DOCTOR OKAYED ADDITIONAL PRN DOSE OF HALDOL. CONTINUED TO MONITOR PT CLOSELY AND ROUND IN REGULAR/SHORT INTERVALS. CALL LIGHT ACCESSIBLE. BED ALARM IN PLACE.
[2024-05-14 15:05] VITALS: BP 125/81
[2024-05-14 16:13] LABS: HCV QNT BY NAAT (IU/ML) 537000 IU/mL; HCV QNT BY NAAT (LOG IU/ML) 5.73; HCV QNT BY NAAT INTERP Detected (Not Detected)
--- NOTE | 2024-05-14 18:02 | NUR ---
SHIFT SUMMARY PT IS A&0 X1 SELF AND CONFUSED. PT DID NOT HAVE A BM. PT IS INCONTENENT AND HAS A BREIF ON. PT HAS PPN RUNNING THROUGH NeurOp FOR NUTRITION. PT REFUSES MEALS TODAY. OBSERVED PT HAS HAD AUDIO AND VISUAL HALLUCINATIONS. PT IS NOT REDIRECTABLE. CAMERA IS ON PT. PT IS IN 4 POINT SOFT RESTRAINTS. CIRCULATION IS INTACT IN ALL EXTREMITIES. PT PREFORMED ROM AND REPOSITIONING Q2 HOURS. PT WILL CALL OUT FOR HELP WHEN NEEDED, DOES NOT USE CALL LIGHT APPROPRIATELY. VSS.
[2024-05-14] MEDS ORDERED: Bisacodyl 10 MG Supp PR STA (19:00)
[2024-05-14] MEDS ORDERED: Bisacodyl 10 MG Supp PR PRN (19:00)
[2024-05-14] MEDS ORDERED: OLANZapine 10 MG Vial IM PRN (19:05)
[2024-05-14] MEDS ORDERED: LORazepam 2 MG/ML 1ML Injection IV ONE (19:05)
[2024-05-14] MEDS ORDERED: QUEtiapine Fumarate 25 MG Tab PO SCH (20:00)
[2024-05-14 20:15] VITALS: BP 149/84
[2024-05-14] MEDS ORDERED: LORazepam 2 MG/ML 1ML Injection IV SCH (21:55)
--- NOTE | 2024-05-15 05:26 | NUR ---
CAMPGROUND CLEANING ATTENDANT SUMMARY PT REMAINS IN 4 POINT SOFT RESTRAINTS WITH VIRTUAL COMPAINION. MEDICATION CHANGES ORDERED BY DR AGUILAR INCLUDED ADD OF 25MG SEROQUEL AND 5MG IM ZYPREXA; D/C OF HALDOL. PT CONTINUES TO HAVE AMS, HALLUCIANTIONS, DELLUSIONS. UNDIRECTABLE FOR CARE. PT AGREEABLE TO 2100 MEDS INCLUDING SEROQUEL. ZYPREXA ALSO GIVEN FOR INCREASED AGITATION. PT SLEPT APROX 4 HOURS CONTINUOUS FOLLOWED BY INTERMITTANT SLEEP FOR REMAINDER OF SHIT. ADMINISTERED DUCOLAX SUPPOSITORY AT 0220; STOOL FELT WITH INSERTION OF SUPPOSITORY. PT HAS SMALL SMEAR BM AT APOX 0530 WITH INDICATION FROM PT OF FURTHER NEED FOR BM. PT PULLED POWER GLIDE FROM NEVIN WITH CONTINUOUS TPN INFUSION. SITE WNL. CATHETER INTACT. WAS NOT ALERTED BY VIRTUAL COMPAINION AND FOUND PULLED AT APROX 0500. NEW PG WILL NEED TO BE PLACED FOR TPN. PT ROUNDED ON AT LEAST HOURLY T/O THE NIGHT. CALL LIGHT PLACED IN REACH. BED LOCKED AND IN LOW POTISION, ALARM IN PLACE. ENCOURAGING SIPS OF WATER--PT REFUSING MOST OF THE TIME.
[2024-05-15 08:36] VITALS: BP 118/80
--- NOTE | 2024-05-15 13:47 | NUR ---
PT MEDICATED PER EMAR 20 MINUTES BEFORE PLANNED MRI. AFTER LORAZEPAM, PT MORE CONFUSED, UNABLE TO LAY STILL. TRACK HELPER REFUSED TO ATTEMPT IMAGING DUE TO PT BEING NON REDIRECTABLE AND PULLING AT RESTRAINTS. CURRENTLY WAITING ASSISTANT PROFESSOR OF EDUCATION BACK FROM DR. AGUILAR FOR FURTHER INSTRUCTION.
[2024-05-15 15:06] VITALS: BP 107/75
--- NOTE | 2024-05-15 17:23 | NUR ---
PT IS CONFUSED NOT REDIRECTABLE. PT REMAINS IN FOUR POINT SOFT RESTRAINT, PT CONTINUES TO ATTEMPT TO GET OUT OF BED UNSAFELY, NOT REDIRECTABLE. REMOVED RESTRAINTS TO ALLOW PT ROM. PT DID WIPE FACE AND BRUSHED HER TEETH. PT IS VERY UNDSTEADY AND WOULD NOT FOLLOW DIRECTIONS TO STAY SEATED. PT BECAME INCREASINGLY IRRITATED WITH STAFF. PT ATTEMPT TO PUSH STAFF AWAY AND STAND UP TO WALK. STAFF REPEATEDLY ASKED PT NOT TO STAND IT WAS NOT SAFE. PT TOLD TECHNICIAN BIOLOGICAL HEALTH TO "LET ME THE FUCK ALONE" PT PLACED BACK IN 4 POINT RESTRAINTS. PT EDUCATED ON REQUIREMENTS TO HAVE RESTRAINTS REMOVED. PT UNABLE TO STAY STILL FOR MRI TODAY. DR. AGUILAR NOTIFIED. PER , WILL REATTEMPT TOMORROW. PT REFUSE FOOD TODAY.
[2024-05-15] MEDS ORDERED: QUEtiapine Fumarate 50 MG TAB PO SCH (18:00)
[2024-05-15 19:22] VITALS: BP 109/72
--- NOTE | 2024-05-16 04:32 | NUR ---
SUMMARY- PT REMAINS IN RESTRAINTS. PT HAS BEEN REPOSITIONED NEEDED. PT REMAINS CONFUSED AND TRYING TO GET OOB. PM MEDS WERE PAST AND PT WAS ABLE TO SLEEP SOME. PT HAD SOME PO FLUID INTAKE. PT REFUSED OFFERED SNACKS. PT REPOSITIONED TOLERATED. PT HAS NONSENSICAL SPEECH AND DOES NOT FOLLOW DIRECTION. CALL LIGHT IN REACH, BED ALARM ON AND CAMERA IN ROOM.
[2024-05-16 07:49] VITALS: BP 115/72
[2024-05-16] MEDS ORDERED: QUEtiapine Fumarate 25 MG Tab PO SCH (09:00)
[2024-05-16 14:37] VITALS: BP 111/77
[2024-05-16] MEDS ORDERED: QUEtiapine Fumarate 25 MG Tab PO PRN (15:55)
--- NOTE | 2024-05-16 18:46 | NUR ---
PT REMAINS CONFUSED AND NON DIRECTABLE. SHE IS HALLUCINATING AND PARANOID, SHE BELIEVES HER SISTER IS IN THE ROOM CRAWLING ON THE GROUND, PT MEDICATED PER EMAR. CURRENTLY RESTING WITH EYES CLOSED. FOUR POINT RESTRAINTS CONTINUED, VIRTUAL IT SERVICE TECHNICIAN ON. EPISODES OF INCONT, 2 PERSON ASSIST TO BSC. PT IS VERY DIFFICULT TO GET BACK IN BED. DOES NOT FOLLOW DIRECTIONS. R.A
[2024-05-16] MEDS ORDERED: Haloperidol Lactate Inj. 5 MG/ML Injection IV PRN (19:35)
[2024-05-16 19:46] VITALS: BP 125/47
[2024-05-17 03:58] VITALS: BP 128/75
--- NOTE | 2024-05-17 04:32 | NUR ---
NOTIFIED HOSPITALIST THAT PT HAS GOTTEN OUT OF 4 POINT SOFT RESTRAINTS MULTIPLE TIMES DURING SHIFT AND HAS BEEN CONSTANTLY COMBATIVE AND UNCOOPERATIVE WITH CARE, AND UNABLE TO REDIRECT. NEW ORDER FOR 4 POINT LOCKED RESTRAINTS INITIATED 05/17/24 @ 0335 AND EXPIRES 05/18/24 @ [address]
--- NOTE | 2024-05-17 05:30 | NUR ---
SHIFT SUMMARY NOC PT A/O TO SELF. COMBATIVE AND UNCOOPERATIVE WITH CARE. IN 4 POINT SOFT RESTRAINTS THAT WERE RENEWED 05/16/24 @ 2131 AND 05/17/24 @ 2131. PT RECIEIVED DOSE OF HALDOL IV 5 MG AND SEROQUEL 25 MG FOR AGITATION WITH MINIMAL EFFECT. PT NOW IN LOCKED 4 POINT RESTRAINTS AFTER ESCALATION IN BEHAVIOUR AND GETTING OUT OF SOFT RESTRAINTS INTIATION 05/17/24 @ 0335 EXPIRES 05/18/24 @ 0335. PT HAS POWERGLIDE IN NEVIN WITH CONTINOUS INFUSION OF PPN @ 100 ML/HR, AND IS Q6H CBG 110, AND. PT ALSO HAS VIRTUAL METAL OR WOOD BLOCKER IN PLACE FOR SAFETY MONITORING. PT IS CURRENTLY RESTING WITH BED ALARM ON, BED IN LOWEST POSITION, AND CALL LIGHT WITHIN REACH.
[2024-05-17 06:20] LABS: Triglycerides 146 mg/dL (30-160)
[2024-05-17 07:17] VITALS: BP 129/86
--- NOTE | 2024-05-17 09:00 | NUR ---
pt laying in bed very agitated, wants to get up, and have a phone, much calmer after she ate breakfast, is confused, states she is at her home, lungs are clear on r/a, no cough, hrr, incont of urine, briefs in place, skin c/w/d, except elbows that she rubs on the bed, franck martines, call light in reach.
[2024-05-17] MEDS ORDERED: QUEtiapine Fumarate 100 MG Tab PO SCH (18:00)
--- NOTE | 2024-05-17 18:05 | NUR ---
pt continues to hallucinate, has been pleasant and laughing at times, stood her to void, seraquel as increased to 100mg tonight, no further changes this shift. call light in reach.
[2024-05-17 19:48] VITALS: BP 129/96
[2024-05-18 04:10] VITALS: BP 137/78
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
[2024-05-18 07:35] VITALS: BP 103/84
[2024-05-18 15:55] VITALS: BP 139/83
[2024-05-18 17:38] LABS: Bun/Creatinine Ratio 31.5 (12.0-20.0); Calcium, Blood 9.4 mg/dL (8.5-10.1); Creatinine, Blood 0.45 mg/dL (0.40-1.00); Magnesium, Blood 2.1 mg/dL (1.6-2.4); Phosphorus, Blood 4.2 mg/dL (2.5-4.9); Potassium, Blood 3.8 mmol/L (3.5-5.5)
--- NOTE | 2024-05-18 19:16 | NUR ---
report received verified pt a/ox1 vss in 4 point restraints and attempting to get out of them. pt on several occaions was able to work self loose and make it to end of bed. i was able to stand pt up at bedside to transfer to bedside commode but pt very unpredictable and not cooperative, though pt was not able to communicate needing to use the bathroom increased agitation was a tell to stand and use bsc. MD increased seroquel and plan was implemented, pt seemed more relaxed and cooperative today then previous days. family was at bedside in the afternoon and commented that she was more cooperative but still very confused and hallucinating through out the day visual and auditory. camera monitor at bedsside aswell he;lping with monitoring pt.
[2024-05-18 19:34] VITALS: BP 117/89
[2024-05-19 04:33] VITALS: BP 127/75
--- NOTE | 2024-05-19 05:22 | NUR ---
SHIFT SUMMARY PT CONTINUES TO BE IN WRIST AND ANKLE RESTRAINTS. PT CONTINUES TO HAVE VIDEO MONITORING IN THE ROOM, ALTHOUGH THE MONITORING SERVICE HAS BEEN HAVING IT PROBLEMS THIS SHIFT. PT HAS BEEN MORE PLEASANT THIS SHIFT BUT IS STILL HARD TO REDIRECT. BED IN LOW POSITION AND CALL LIGHT IS WITHIN PT REACH. WILL CONTINUE TO MONITOR. ORDER FOR RESTRAINTS IS DUE ON 05/21/2024 AT 0027.
[2024-05-19 07:15] VITALS: BP 133/85
[2024-05-19] MEDS ORDERED: QUEtiapine Fumarate 50 MG TAB PO SCH (10:30)
[2024-05-19 15:59] VITALS: BP 140/92
[2024-05-19] MEDS ORDERED: Haloperidol Lactate Inj. 5 MG/ML Injection IM ONE (16:10)
--- NOTE | 2024-05-19 17:22 | NUR ---
REPORT RECEIVED VERIFIED, NO CHANGE IN PT CONDITION, STILL IN 4 POINT RESTRAINTS AND STILL VERY CONFUSED, PT CONSTANTLY ATTEMPTING TO GET OUT OF BED. ALL SORTS OF DESTRACTION METHODS ATTEMPTED BUT PT NOT REDIRECTABLE BUT IS COOPERATIVE WHEN DIRECTED. SERVERAL TIMES PT ASSISTED TO SIDE OF BED RESTRAINTS WERE REMOVED FOR A TIME AND PT WAS GIVEN BATH AT BEDSIDE. PT WAS A LITTLE MORE VISIBLY AGITATED AFTER BATH BUT DID NOT STRUGGLE GETTING BACK IN BED. NO CHANGE IN PT CONDITION THROUGHOUT THE AFTERNOON AND PT WAS CONFUSED AND CONTINUALLY ATTEMPING TO GET OUT OF BED. PT WAS MEDICATED PER PROTOCOL. 1600 ORDERS WERE PLACED FOR MRI WITH CONTRAST. WAITING CONSENSUS BETWEEN RADIOLOGIST AND MD FOR MRI TO BE DONE. UNTIL THEN PT LAYING IN BED IN RESTRAINTS NO S/S OF DISTRESS NO SIGH OF INJURY. REFUSING TO EAT BUT IV NURITION INFUING
--- NOTE | 2024-05-19 18:36 | NUR ---
1814 pt given IM haldol to and taken off restraints for transfer to MRI. pt confirmed understanding that she was going to an MRI and that she was scared. i consoled pt and she was then transfered onto mri table and imaged. awaiting final imaging
[2024-05-19 19:28] VITALS: BP 132/84
[2024-05-20 04:40] VITALS: BP 141/84
--- NOTE | 2024-05-20 05:05 | NUR ---
DINKEY MOTOR OPERATOR NOTE PATIENT IS A&O TO SELF, VERY CONFUSED, TRIED GETTING UP. PATIENT IS IN A 4 POINT LOCKED RESTRINT AND IS ON TELE MONITOR. PATIENT IS ON ROOM AIR AND BP THIS MORNING IS SLIGHTLY ELEVATED. PATIENT PULLED OUT POWER GLID THAT HAD PPN RUNNING. PPN STOPPED UNTIL ANOTHER POWER GLID IS PLACED.
[2024-05-20 06:14] LABS: Bun/Creatinine Ratio 28.7 (12.0-20.0); Calcium, Blood 9.6 mg/dL (8.5-10.1); Creatinine, Blood 0.56 mg/dL (0.40-1.00); Magnesium, Blood 1.9 mg/dL (1.6-2.4); Phosphorus, Blood 6.3 mg/dL (2.5-4.9); Potassium, Blood 3.4 mmol/L (3.5-5.5)
[2024-05-20 09:22] VITALS: BP 117/68
[2024-05-20 16:03] VITALS: BP 111/70
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
[2024-05-20 20:51] VITALS: BP 107/71
[2024-05-21 05:35] VITALS: BP 128/72
--- NOTE | 2024-05-21 05:59 | NUR ---
ENGINE INSTALLER PATIENT IS A&O TO SELF, VERY CONFUSED, TRIED PULLING ON LINES AND TRIED GETTING OUT OF BED. PATIENT IS PLACED ON A TWO POINT WRIST RESTRINT AND A TELE MONITOR. PATIENT IS SOMETIMES REDIRECTABLE BUT MOST OF THE TIME SHE IS NOT. PATIENT IS ON PPN RUNNING AT A 100ML/HR. PATIENT GETS UP WITH 2 PERSON ASSIST TO THE BEDSIDE COMMODE.
[2024-05-21 07:42] VITALS: BP 118/66
[2024-05-21] MEDS ORDERED: LORazepam 2 MG/ML 1ML Injection IV PRN (10:05)
[2024-05-21 16:24] VITALS: BP 94/65
--- NOTE | 2024-05-21 18:02 | NUR ---
PATIENT A/OX1-2, AMBULATED TODAY IN ROOM WITH 1 ASSIST. PATIENT GIVEN SCHEDULED SEROQUEL AND ATIVAN X2 TODAY TO HELP OBTAIN HEAD MRI WHICH WAS SUCCESSFUL. RESTRAINTS D/C'D THIS AM AND PATIENT HAS BEEN CALM AND REDIRECTABLE THIS SHIFT. CONTINENT OF URINE. CAMERA IN PLACE AND BED ALARM SET FOR SAFETY. PPN CONTINUES AT 100ML/HR. PATIENT DENIES ANY PAIN. TAKES PILLS WHOLE WITH APPLESAUCE. APPETITE REMAINS POOR, BUT PATIENT DID EAT 25% OF DINNER THIS EVENING. NO NEW CONCERNS THIS SHIFT.
[2024-05-21 20:36] VITALS: BP 116/74
[2024-05-22 03:55] VITALS: BP 121/75
--- NOTE | 2024-05-22 05:38 | NUR ---
SOCIAL SERVICES PATIENT IS A&O TO SELF, VERY CONFUSED. TRIED GETTING OUT OF BED AND PULLING ON IV LINES.TWO POINT LOCKED WRIST RESTRINT ORDERED, ON A TELE MONITOR. PATIENT IS CURRENTLY SLEEPING
[2024-05-22 07:06] VITALS: BP 114/74
[2024-05-22] MEDS ORDERED: Docusate Sodium 100 MG Cap PO SCH (11:30)
[2024-05-22 13:02] LABS: Bun/Creatinine Ratio 27.3 (12.0-20.0); Creatinine, Blood 0.51 mg/dL (0.40-1.00); Magnesium, Blood 1.6 mg/dL (1.6-2.4); Phosphorus, Blood 4.1 mg/dL (2.5-4.9); Potassium, Blood 3.6 mmol/L (3.5-5.5)
[2024-05-22 15:49] VITALS: BP 119/82
--- NOTE | 2024-05-22 17:04 | NUR ---
PATIENT A/O TO SELF ONLY. AMBULATING TO RESTROOM WITH SBA. PATIENT REQUIRES MANY QUES, BUT IS MORE REDIRECTABLE TODAY. VSS, ON RA. PPN CONTINUES AND IS NOW RUNNING AT 65ML/HR PER ADIN, HEDIS SPECIALIST. RESTRAINTS D/C'D THIS AM AND AGITATION HAS BEEN CONTROLLED WITH SCHEDULED AND PRN SEROQUEL X2 TODAY. APPETITE IMPROVING SOME AND BOWEL CARE STARTED. NO OTHER NEW CONCERNS THIS SHIFT. CAMERA IN ROOM AND BED ALARM SET FOR SAFETY.
[2024-05-22 19:44] VITALS: BP 97/59
[2024-05-23 03:23] VITALS: BP 101/66
--- NOTE | 2024-05-23 05:16 | NUR ---
MANUFACTURING CHIEF ENGINEER NOTES PATIENT IS A&O TO SELF AND PLACE, OCCLUSIONAL AUDITORY AND VISUAL HALLUCINATION, HAS BEEN COOPERATIVE THORUGHOUT THE SHIFT AND NO NEED FOR RESTRINT. PATIENT IS ON ROOM AIR, NOT ON TELE, SO BP. PATIENT IS CURRENTLY ON TELE MONITOR AND IS SLEEPING.
[2024-05-23 07:58] VITALS: BP 98/60
--- NOTE | 2024-05-23 09:01 | NUR ---
CALLED DR HOUSTON- BP 98/[address] DOS SANTOS THE PT HAS MANY MEDS THAT CAN REDUCE BP. ORDER RECIEVED TO HOLD METOPROLOL AND LISINOPRIL THIS AM
--- NOTE | 2024-05-23 13:12 | NUR ---
Called dietitian- Pt has PPN running at this time at 65ml/hr. The order states 100ml/hr however per report from amita rn, report she recieved was that the order was being changed to 65ml/hr. Called Ezio Madrid and spoke to him. the rate of 65ml/hr is ok, we will spaek more about it around 1330, as pt PO intake remains fairly poor. PPN is still running at 65ml/hr at this time.
[2024-05-23] MEDS ORDERED: TPN Consult Notification XX ONE (13:55)
--- NOTE | 2024-05-23 15:09 | NUR ---
SHIFT SUMMARY- PT ALERT AND ORIENTED X 2-3. SHE STILL HAS HALLUCINATIONS AND WILL ASK STAFF TO AUDIO VISUAL TECH OBJECTS THAT ARE NOT THERE. THE PT HAD FAMILY COME IN TO DAY (HER DAUGHTER SHRUTHI AND SISTER CHIDI HIGH) PT SISTER CHIDI IS HANDLING ALL COMMUNICATION. UPDATES SHOULD GO TO HER AND SHE WILL DECIDE HOW TO DESEMINATE INFORMATION. PT HAS A BF THAT SHE LIVES WITH, ALEXIS. FAMILY HAS ASKED THAT HE NOT BE INVOLVED WITH THE DISCHARGE PLANS. HE CAN COME SEE THE PT AND SEE HOW SHE IS, BUT MEETINGS AND DISCHARGE PLANNING ARE BEING HANDLED BY THE PT SISTER AND DAUGHTER (SHRUTHI). VERBAL RELEASE OF INFORMATION IS IN THE FRONT OF THE CHART. THE PT SISTER CHIDI HAS ELECTED TO BE THE POC FOR THE PT. CAREMANAGEMENT AND BUSINESS MANAGEMENT CONSULTANT HAD A MEETING WITH THE FAMILY TODAY ABOUT THE PLANS FOR DISCHARGE. DIETITIAN CAME TO SEE THE PT. SHE IS STILL NOT EATING MUCH FAR FOOD GOES AND THE DIETITIAN MADE A CHANGE TO THE PPN ORDER. HE REQUESTED THIS RN TO CONTINUE RUNNING THE CURRENT PPN AT 65ML/HR UNTIL THE NEW ORDER ARRIVES. WILL HANG THE NEW BAG WHEN IT ARRIVES. PT IN BED, CALL LIGHT IN REACH BED AND CHAIR ALARMS IN USE TO KEEP THE PT SAFE. PT IS ABLE TO STAND PIVOT TRANSFER 1PA WITH A FWW AND GAIT BELT. NO CURRENT S&S OF DISTRESS NOTED.
--- NOTE | 2024-05-23 15:54 | NUR ---
PT MEDICATED WITH PRN KERVIN- PT WOKE FROM HER NAP AND WANTED TO GO TO THE RESTROOM. AFTER THAT SHE WAS RESTLESS. STAFF OFFERED TO ASSIST HER TO THE CHAIR OF THE BED, SHE BECAME FRUSTRATED BECAUS SHE WANTED TO DO THINGS FOR HERSELF, LIKE OPEN THE WINDOWS AND DO LAUNDRY AND MAKE HER BED. STAFF EXPLAINED THAT THE PT HAS IMPROVED GREATLY. SHE DECLINED TO LAY [place] OR SIT AND BECAME TEARFULL. SHE THOUGHT SHE WAS AT HOME AND HER KIDS COULD COME IN AND MAKE A PHONE CALL FOR HER. WHEN SHE WAS REDIRECTED THAT SHE WAS IN THE HOSPITAL SHE BECAME TEARFULL AGAIN. STAFF OFFERED TO MAKE A PHONE CALL FOR HER, SHE DECLINED SAYING SHE WILL WAIT UNTIL THE KIDS GET HERE. MEDICATED PRN TO HELP WITH HER AGGITATION FROM HER CONFUSION.
[2024-05-23] MEDS ORDERED: Parenteral Electolytes 40 ML,Potassium Phosphate Dibasic 30 MM,Multivitamins 10 ML,ZINC... IV SCH (17:00)
[2024-05-23 17:18] VITALS: BP 128/83
[2024-05-23 19:16] VITALS: BP 117/76
[2024-05-24 02:32] VITALS: BP 108/64
[2024-05-24 06:36] LABS: Anion Gap 10 mmol/L (3-11); Blood Urea Nitrogen 14 mg/dL (8-24); Bun/Creatinine Ratio 25.9 (12.0-20.0); CO2, Blood 26 mmol/L (21-32); Calcium, Blood 9.3 mg/dL (8.5-10.1); Chloride, Blood 105 mmol/L (98-108); Creatinine, Blood 0.54 mg/dL (0.40-1.00); Glomerular Filtration Rate 109 (60-); Glucose, Blood 121 mg/dL (70-99); Magnesium, Blood 1.7 mg/dL (1.6-2.4); Phosphorus, Blood 5.6 mg/dL (2.5-4.9); Potassium, Blood 4.2 mmol/L (3.5-5.5); Sodium, Blood 137 mmol/L (136-145); Triglycerides 106 mg/dL (30-160)
--- NOTE | 2024-05-24 06:45 | NUR ---
NO ACUTE CHANGES DURING SHIFT. PT ORIENTATION VARIES, SOMETIMES ORIENTED AND SOMETIMES CONFUSED. NO REPORTS OF PAIN/N/V. CBG WNL.
[2024-05-24 07:09] VITALS: BP 128/84
[2024-05-24] MEDS ORDERED: Megestrol Acetate Susp 400MG/10ML UDC PO SCH (09:00)
[2024-05-24 14:55] VITALS: BP 128/90
--- NOTE | 2024-05-24 18:30 | NUR ---
SHIFT SUMMARY- PT ALERT AND ORIENTED TO SELF AND FAMILY. PT CAN FOLLOW SOME INSTRUCTIONS, HOWEVER SHE IS UNABLE TO FOLLOW SVERAL STEP INSTRUCTIONS, SHE NEEDS ONE STEP AT A TIME. PT IS CURRENTLY IN BED, CALL LIGHT IN REACH, BED AND CHAIR ALARMS IN PLACE FOR PT SAFETY. PT HAS PPN INFUSING IN HER NEVIN PG THAT IS POSSITIONAL TODAY. PT BECAME A LITTLE AGGITATED AROUND 1700 AND WAS MEDICATED WITH HER 1800 DOSE OF SEROQUEL A LITTLE EARLY. IT SEEMS TO HAVE HELPED SHE IS CALMLY WATCHING TV AT THIS TIME.
[2024-05-25 03:47] VITALS: BP 117/82
[2024-05-25 06:31] LABS: Bun/Creatinine Ratio 20.4 (12.0-20.0); Calcium, Blood 9.7 mg/dL (8.5-10.1); Creatinine, Blood 0.59 mg/dL (0.40-1.00); Magnesium, Blood 1.7 mg/dL (1.6-2.4); Phosphorus, Blood 6.1 mg/dL (2.5-4.9); Potassium, Blood 3.9 mmol/L (3.5-5.5)
--- NOTE | 2024-05-25 06:47 | NUR ---
PT VERY CONFUSED AT TIMES, THINKS SHE IS AT HOME AND REFUSES TO BELIEVE SHES IN THE HOSPITAL, TAKEN OUT TO HALLWAY WHERE SHE WAS ABLE TO REALIZE SHE IS AT A HOSPITAL. VSS. PRN SEROQUEL ADMIN REQUIRED TWICE DURING SHIFT.
[2024-05-25 07:18] VITALS: BP 121/94
[2024-05-25 15:13] VITALS: BP 126/92
--- NOTE | 2024-05-25 16:46 | NUR ---
SHIFT SUMMARY: PATIENT A/O TO SELF, PLACED AND DATES. PATIENT HAS EPISODE OF CONFUSION ON/OFF T/O THE DAY, EASILY REDIRECTABLE AND ABLE TO FOLLOW SIMPLE COMMAND. PATIENT DECLINE BREAKFAST, ATE 25% AT LUNCH AND SNACKING FRESH STRAWBERRY T/O THE DAY. PATIENT STILL ON CONTINUES PPN. PATIENT CONTINENT OF BLADDER, UP c 1 ASSIST TO BSC. PATIENT SHOWERED c MINIMAL TECHNICAL INSTRUCTOR COURSE DEVELOPER FROM POWERHOUSE HELPER. PATIENT DENIES GENERALIZED PAIN, CP/PRESSURE, SOB, N/V AND DIZZINESS. VITAL SIGNS REVIEWED. PATIENT ON CONTINUES VEDIO MONITORING, BED/CHAIR ALARM ON FOR SAFETY. CALL LIGHT IN REACH.
--- NOTE | 2024-05-25 18:40 | NUR ---
DINNER INTAKE NOTE: PATIENT ATE 50% FOR DINNER. PATIENT STATED "THE MORE I ATE A REGULAR FOOD THE SOONER I WILL GO HOME AND I DON'T NEED THIS IV."
[2024-05-25 19:35] VITALS: BP 115/61
--- NOTE | 2024-05-26 03:51 | NUR ---
SHIFT SUMMARY: PT IS A [age] YEAR OLD FEMALE. FULL CODE. PT HAS BEEN CONFUSED MOST OF THE SHIFT AND OFTEN THINKS SHES AT HOME AND WILL CALL OUT FOR "CHIDI" OR HER DAUGHTERS. PT ALSO BELIEVES A MAN NAMED "ANTOINE" WAS HERE AND WANTED HIM TO LEAVE. BED ALARM HAS BEEN SET BUT PT WILL CONTINUE TO GET OUT OF BED PERIODICALLY THROUGHOUT THE SHIFT AND REQUEST TO GO TO THE BATHROOM OR WANTS TO WALK TO HER FRIDGE (PT DOES NOT HAVE A FRIDGE). PT FORGETS THAT SHE HAS A CONTINUOUS POWERGLIDE TPN (SEE EMAR) AND OFTEN PULLS ON CORD AND STAFF TRIES TO REDIRECT HER TO NOT PULL ON THE CORD. PT DOES NOT CALL WHEN SHE WANTS TO GET OUT OF BED AND IS UNSTEADY ON HER FEET. PT USES BSC BUT SOMETIMES REQUESTS TO USE IT AND THEN DOESNT URINATE. PT IS SOMETIMES REDIRECTABLE BUT ALSO CAN BE VERBALLY HARSH TOWARDS STAFF. PT IS CURRENTLY BEING MONITORED BY VIDEO IN ROOM. PT IS STILL HAVINF AUDITORY HALLUCINATIONS AND AT ONE POINT GOT OUT OF BED AND THOUGHT THE FLOOR WAS WET BUT THE FLOOR WAS DRY.BED ALARM SET AND CALL LIGHT IN REACH.
[2024-05-26 06:50] LABS: Bun/Creatinine Ratio 23.9 (12.0-20.0); Creatinine, Blood 0.59 mg/dL (0.40-1.00); Magnesium, Blood 1.9 mg/dL (1.6-2.4); Phosphorus, Blood 6.8 mg/dL (2.5-4.9); Potassium, Blood 4.2 mmol/L (3.5-5.5)
[2024-05-26 07:30] VITALS: BP 118/83
--- NOTE | 2024-05-26 17:50 | NUR ---
SHIFT SUMMARY PT A&OX3, COOPERATIVE W/ PROCEDURES, CALL LIGHT IN REACH, ABLE TO MAKE NEEDS KNOWN. PT HAD EPISODES OF CONFUSION TODAY, WAS ABLE TO AMBULATE IN HALLWAY. TOLERATING PO MEDS AND IV PPN WELL. NO NEED FOR RESTRAINTS TODAY, STILL ON VIDEO MONITORING.
[2024-05-26 18:11] VITALS: BP 138/78
[2024-05-26 19:57] VITALS: BP 107/65
[2024-05-27 03:25] VITALS: BP 120/77
--- NOTE | 2024-05-27 03:38 | NUR ---
SHIFT SUMMARY: PT IS A 54 YEAR OLD FULL CODE FEMALE. PT WAS ADMITTED NEARLY A MONTH AGO FOR ALCOHOL WITHDRAWL.PT HAS BEEN COOPERATIVE A&OX3 BUT IS CONFUSED AT TIMES AND HAS AUDITORY/VISUAL HALLUCINATIONS. PT USES BSC WHEN SHE HAS TO USE THE BATHROOM AND IS ON CONTINUOUS PPN FEEDINGS. VIDEO MONITORING IS IN PROGRESS AND BED ALARM HAS BEEN SET. PT WILL NOT USE CALL LIGHT WHEN NEEDED BUT WILL INSTEAD GET UP AND TRY TO WALK AROUND. PT TAKES MEDICATIONS WELL. PT HAS CALL LIGHT IN REACH AND IS RESTING IN BED.
[2024-05-27 07:46] VITALS: BP 116/77
[2024-05-27 15:06] VITALS: BP 118/94
--- NOTE | 2024-05-27 16:17 | NUR ---
Pt's mentation has greatly improved during this hospital stay. She verbalizes wanting to remain a Full Code. No further needs at this time.
--- NOTE | 2024-05-27 16:55 | NUR ---
SHIFT SUMMARY: PATIENT A/O TO SELF, PLACED AND DATES. FORGETFUL AT TIMES AND INTERMITTENT CONFUSION T/O SHIFT, BUT EASILY REDIRECTABLE AND FOLLOW DIRECTIONS. PATIENT AMBULATED c THIS RN AROUND MEDICAL UNIT, DID WELL AND SAT UP IN THE RECLINER CHAIR FOR THE MAJORITY OF THIS SHIFT. PATIENT APPETITE HAS IMPROVED, PPN WAS DC'D THIS AM PER ORDER. PATIENT SISTER (CHIDI) CAME AND STAYED c PATIENT FOR ABOUT 4 HRS. PATIENT SHOWERED c MINIMAL ROADABILITY MACHINE OPERATOR AND LINEN CHANGED. PATIENT RECEIVED SCHEDULED MEDS PER EMAR. VITAL SIGNS REVIEWED. PATIENT STILL ON CONTINUES VEDIO MONITORING, CHAIR/BED ALARM ON FOR SAFETY. CALL LIGHT IN REACH.
[2024-05-27 19:22] VITALS: BP 109/69
--- NOTE | 2024-05-28 05:51 | NUR ---
Patient alert and oriented x2-3 overnight, VSS, resting comfortably in bed, compliant with care, pleasant. Patient redirectable, using bed alarm, call light, and Avasure to notify care staff of bathroom needs, ambulating with standby assistance. Powerglide maintained to right upper arm, saline locked.
[2024-05-28 07:38] VITALS: BP 118/88
[2024-05-28] MEDS ORDERED: Bisacodyl 5 MG TabEC PO PRN (10:15)
[2024-05-28] MEDS ORDERED: Sennosides 8.6 MG Tab PO ONE (10:15)
[2024-05-28 14:59] VITALS: BP 136/97
--- NOTE | 2024-05-28 17:34 | NUR ---
SUMMARY- PT A/O X3, FORGETFUL AND IMPULSIVE. AMBULATES ADQ STRENGTH WITH WALKER, OCC UNSTEADY GAIT, NEEDS SBA. PT HAS VIDIO MONITORING AND BED AND CHAIR ALARM FOR FALL PERCAUTIONS. SET OFF ALARMS MULT TIMES FORGETTING TO CALL FOR HELP. PT VOIDING WITHOUT DIFFICULTY. MEDICATED WITH S[place], LAST BM STATED BY SISTER WAS 05/25. PT TOLERATING FOOD AND FLUID. MULT FAMILY MEMBERS HERE TO VISIT, SUPPORTIVE IN CARE. AWAITING PLACEMENT. WILL REPORT TO NOC RN
[2024-05-28 19:31] VITALS: BP 114/72
[2024-05-29 03:32] VITALS: BP 100/67
--- NOTE | 2024-05-29 04:50 | NUR ---
DEGREE CLERK SUMMARY NO ACUTE CHANGES OVERNIGHT. PT HAS BEEN VERY PLEASANT AND COOPERATIVE. SHE DOESNT REMEMBER TO CALL BEFORE GETTING UP TO THE BATHROOM AND HER BED ALARM ACTIVATES BUT IS OTHERWISE VERY COMPLIANT. SHE HAS BEEN STEADY ON HER FEET AND APPEARS TO BE GETTING MUCH STRONGER.
[2024-05-29 07:21] VITALS: BP 130/95
[2024-05-29 10:21] LABS: Source, Urine Clean Catch
[2024-05-29 10:27] LABS: Appearance, Urine Hazy (Clear); Bilirubin, Urine Neg (Neg); Blood, Urine Neg (Neg); Color, Urine Yellow (P-Yellow); Glucose Qualitative, Urine Neg (Neg); Ketones, Urine Neg (Neg); Leukocyte Esterase, Urine Neg (Neg); Nitrite, Urine Neg (Neg); Protein, Urine 1+ (Neg); Urobilinogen, Urine 2+ (Normal)
[2024-05-29 12:15] LABS: Bacteria Rare /hpf; Red Blood Cells, Urine 0-2 /hpf (0-2); Squamous Epithelial Cells Rare /hpf (Few); White Blood Cells, Urine 0-2 /hpf (0-5)
[2024-05-29 15:08] VITALS: BP 112/68
[2024-05-29 19:39] VITALS: BP 102/61
--- NOTE | 2024-05-29 20:07 | NUR ---
SUMMARY- PT A/O X3, FORGETFUL, STM DEFICIT. FREQ REMINDERS TO USE CALL LIGHT AND CONTINUALLY GETS UP UNATTENDED SETTING OFF ALARMS. DID SHOW PROGRESS IN USING CALL LIGHT AND WAITING EXCEPT FROM OUT OF A SLEEP. PT IS 1 SBA WITH WALKER, GOES TO BATHROOM FREQ VOIDS. COMPLAINED SHE FELT SHE MAY HAVE A UTI, SAMPLE SENT AND SHOWEN NO SS OF INFECTION. ENCOURAGED FLUIDS TODAY, DRANK AMPLE CRANBERRY JUICENA D WATER. ALSO CONSUMING 100% OF MEALS/SOLID FOODS. HAS A GOOD APPETITE AND EATING A LOT OF FOOD. HAD MULT BM'S TODAY AND C/O CRAMPING AFTER LUNCH. STATES BM'S ARE FORMED AND LIKE LORRI AND A LOT COMING OUT TODAY. MULT FAMILY AND FRIENDS IN TO VISIT TODAY. REPORTED TO AYAN DONOVAN
[2024-05-30 02:40] VITALS: BP 107/60
--- NOTE | 2024-05-30 03:03 | NUR ---
PT OOB FREQUENTLY THROUGH THE NIGHT UP TO BR. PT C/O CONSTIPATION AT THIS TIME. PT IMPULSIVE AND CONFUSED AT TIMES. PT GIVEN PRUNE JUICE PER REQUEST FOR CONSTIPATION. PT AWAKE AND ALERT AT THIS TIME. SITTING ON BEDSIDE. NO DISTRESS NOTED.
[2024-05-30 07:09] VITALS: BP 102/61
[2024-05-30 14:57] VITALS: BP 111/56
--- NOTE | 2024-05-30 17:36 | NUR ---
PATIENT A&OX4, PLEASANT AND COOPERATIVE TODAY. PATIENT FORGETS TO CALL FOR ASSISTANCE, ENCOURAGED PATIENT TO USE CALL LIGHT WHEN AMBULATING IN ROOM. PATIENT USES WALKER TO AMBULATE TO BATHROOM. NO C/O PAIN. DISCONTINUED VIDEO-MONITORING. CHAIR ALARM IN PLACE FOR SAFETY WHEN SITTING IN CHAIR. PATIENT C/O CONSTIPATION AND CRAMPING TO ABDOMEN, TREATED PER EMAR. BED IS IN LOW POSITION AND CALL LIGHT IS WITHIN REACH.
[2024-05-30 20:17] VITALS: BP 96/60
[2024-05-31 02:29] VITALS: BP 109/71
--- NOTE | 2024-05-31 04:11 | NUR ---
PT COMPLIANT, RESTING QUIETLY IN THE BED. NO DISTRESS NOTED. NO C/O VOICED.
[2024-05-31 06:15] LABS: Triglycerides 104 mg/dL (30-160)
[2024-05-31 07:19] VITALS: BP 125/89
[2024-05-31] MEDS ORDERED: Megestrol Acetate Susp 400MG/10ML UDC PO SCH (09:00)
[2024-05-31 14:54] VITALS: BP 134/96
--- NOTE | 2024-05-31 18:45 | NUR ---
SHIFT SUMMARY PATIENT ALERT AND INTERACTIVE. FORGETFUL AT TIMES AND EASILY CONFUSED. PATIENT INDEPENDENT IN ROOM. SISTER CALLING FREQUENTLY TO PATIENT AND NURSING STAFF. PATIENT EASILY AGITATED AND IRRITABLE AFTER VISITORS AND PHONE CALLS. DISCUSSED WITH PATIENT REDUCING STIMULATION IF NEEDED. PATIENT MEDICATED WITH PRN MEDS FOR AGITATION. PATIENT REQUESTING FOR MEDICATIONS PRIOR TO EXPECTED VISIT FROM SISTER AND FRIEND. SISTER CANCELLED BUT FRIEND VISITED. PATIENT STATED THAT SHE FELT UNCOMFORTABLE DURING THE VISIT. PROVIDED ACTIVE LISTENING AND SUPPORT TO PATIENT. REMINDED PATIENT THAT WE COULD LIMIT VISITING AND CALLING IF PATIENT STRESSED.
[2024-05-31 20:06] VITALS: BP 119/81
[2024-06-01 03:09] VITALS: BP 100/65
--- NOTE | 2024-06-01 04:42 | NUR ---
SHIFT SUMMARY PATIENT IS ALERT AND ORIENTED. PATIENT HAS HAD NO ACUTE EVENTS THIS SHIFT. VITAL SIGNS REVIEWED. PATIENT HAS BEEN PLEASENT AND COOPERATIVE THIS SHIFT. PATIENT HAS HAD NO COMPLAINTS OF PAIN, NAUSEA, SOB OR VOMITTING. PATIENT HAS BEEN IND THIS SHIFT WITH NO ISSUES. BED IN LOCKED AND LOWEST POSITION. CALL LIGHT IN PLACE. WILL MONITOR UNTIL SHIFT CHANGE.
[2024-06-01 07:08] VITALS: BP 105/69
[2024-06-01] MEDS ORDERED: TUMS500 MG PO (13:16)
[2024-06-01] MEDS ORDERED: DIVA125 PO (13:18)
[2024-06-01] MEDS ORDERED: MELATONIN 5 MG1 EACH PO (13:19)
[2024-06-01] MEDS ORDERED: ONE DAILY ESS400 MCG PO (13:19)
[2024-06-01] MEDS ORDERED: QUET100 PO (13:20)
[2024-06-01] MEDS ORDERED: Seroquel Xr50 MG PO (13:21)
[2024-06-01] MEDS ORDERED: QUET25 PO (13:21)
[2024-06-01] MEDS ORDERED: B-1100 M1 PO (13:22)
[2024-06-01 15:37] VITALS: BP 129/85
--- NOTE | 2024-06-01 17:26 | NUR ---
SHIFT SUMMARY PT A&OX4 TODAY, COOPERATIVE WITH CARE, INDEPENDENT IN ROOM. THIS RN WAS INFORMED BY THE PT SHE WOULD BE DISCHARGING ON TUESDAY. HALLUCINATIONS WERE NOTED. PT IS EATING VERY WELL. CALL LIGHT WITHIN REACH.
[2024-06-01 20:06] VITALS: BP 132/80
[2024-06-01] MEDS ORDERED: Divalproex Sodium 125 MG CAP PO SCH (21:00)
[2024-06-02 05:20] VITALS: BP 110/72
--- NOTE | 2024-06-02 05:27 | NUR ---
SHIFT SUMMARY PT A&Ox4 AND PLEASANT. NO C/O PAIN. PT REPORTED FEELING CONSTIPATED AT START OF SHIFT. BOWEL CARE GIVEN PER EMAR. INDPENDENT IN ROOM. PT ABLE TO SLEEP T/O NIGHT. VSS. NO ACUTE CHANGES. BED IN LOWEST POSITION AND CALL LIGHT IN REACH.
[2024-06-02 07:52] VITALS: BP 115/85
[2024-06-02] MEDS ORDERED: Magnesium Hydroxide Conc 10 ML UDC PO ONE (11:00)
[2024-06-02 15:15] VITALS: BP 129/87
--- NOTE | 2024-06-02 18:02 | NUR ---
SHIFT SUMMARY PT A&OX3 TODAY, INDEPENDENT IN ROOM, ABLE TO MAKE NEEDS KNOWN. PT TRYING TO HAVE BM TODAY BUT NOTHING TO REPORT ON THAT. SHE IS TAKING SCHEDULED COLACE, THIS RN GAVE TWO PRUNE JUICE AND NOTIFIED PT TO DRINK PLENTY OF WATER. PT DID HAVE EPISODE OF CONFUSION TODAY, SHE THOUGHT TO DAY OF March, CALLED HER DOGSITTER TO REMIND THEM TO GIVE DOGS BENEDRYL. PT REORIENTED HERSLEF BY THE END OF PHONECALL. PLAN IS STILL TO DISCHARGE TUESDAY. CALL LIGHT WITHIN REACH.
[2024-06-02 19:19] VITALS: BP 136/103
--- NOTE | 2024-06-03 04:32 | NUR ---
SHIFT SUMMARY PT A&Ox4. NO ACUTE CHANGES. PT REPORTS STILL FEELING CONSTIPATED AND ONLY ABLE TO PASS SMALL, HARD STOOL. BOWEL CARE GIVEN PER EMAR. ENCOURAGED PT TO INCREASE WATER INTAKE. INDEPENDENT IN ROOM. PT REQUESTED MELATONIN AT BEDTIME AND ABLE TO SLEEP MOST OF THE NIGHT. BED IN LOWEST POSITION AND CALL LIGHT IN REACH.
[2024-06-03 05:10] VITALS: BP 102/58
[2024-06-03 07:40] VITALS: BP 109/78
[2024-06-03] MEDS ORDERED: Bisacodyl 5 MG TabEC PO ONE (08:00)
[2024-06-03 15:34] VITALS: BP 119/84
--- NOTE | 2024-06-03 18:27 | NUR ---
SHIFT SUMMARY: PT A/O X3. PT OCCASIONALLY CONFUSED ON DATE AND SITUATION. NO ACUTE EVENTS THIS SHIFT. PLAN FOR PT TO D/C TUESDAY HOME WITH SISTER. CALL LIGHT IN REACH. BED IN LOWEST POSITION.
[2024-06-03 19:34] VITALS: BP 106/64
[2024-06-04 05:19] VITALS: BP 109/77
[2024-06-04 07:38] VITALS: BP 121/94
[2024-06-04 15:38] VITALS: BP 125/84
--- NOTE | 2024-06-04 18:04 | NUR ---
VSS, A-Ox4 and forgetfull, denies any SOB, states 8 out of 10 pain that was well managed with prn tylenol, states moderate anxiety that was well managed with prn seroquel, ambulates independently, on RA. Lungs clear, heart regular, bowel sounds normative, skin intact. Pt can make needs known, call vuong in hand, bed in lowest position, to be D/C home with sister tomorrow.
[2024-06-04 19:28] VITALS: BP 123/88
--- NOTE | 2024-06-05 04:52 | NUR ---
SUMMARY- NO ISSUES NOTED. PT HAS BEEN RESTING QUIETLY. PT INDEPENDANT AND DENIES ANY NEEDS. PT TURNS SELF. CALL LIGHT IN REACH.
[2024-06-05 05:07] VITALS: BP 118/83
[2024-06-05 07:53] VITALS: BP 138/108
--- NOTE | 2024-06-05 10:32 | NUR ---
VSS, A-Ox4, forgetful at times with anxiety that was well managed with prn seroquel, denies any pain, denies SOB, ambulates independently, on RA. Lungs diminished, heart regular, bowel sounds normative. Pt D/C at 1025, D/C instruction given, safety ensured.
== END 2024-06-05 10:33 | disposition home health service (06) | DRG 896 ==
LOC: ER 09:14 → MEDS 09:15
PROVIDERS: Emergency Medicine; Family Medicine; Internal Medicine; Student in an Organized Health Care Education/Training Program; ADMIT Internal Medicine
PROC: 3E0336Z Introduction of Nutritional Substance into Peripheral Vein, Percutaneous Approach (ICD-10-PCS; principal; 2024-05-02)
DX: F10.239 Alcohol dependence with withdrawal, unspecified (principal); G93.41 Metabolic encephalopathy; E87.1 Hypo-osmolality and hyponatremia; F05 Delirium due to known physiological condition; R45.851 Suicidal ideations; N39.0 Urinary tract infection, site not specified; K59.00 Constipation, unspecified; F03.90 Unspecified dementia, unspecified severity, without behavioral disturbance, psychotic disturbance, mood disturbance, and anxiety; F10.26 Alcohol dependence with alcohol-induced persisting amnestic disorder; B19.20 Unspecified viral hepatitis C without hepatic coma; E83.52 Hypercalcemia; E87.5 Hyperkalemia; I10 Essential (primary) hypertension; E63.9 Nutritional deficiency, unspecified; R29.6 Repeated falls; R73.03 Prediabetes; F41.9 Anxiety disorder, unspecified; D69.6 Thrombocytopenia, unspecified; E83.42 Hypomagnesemia; F12.90 Cannabis use, unspecified, uncomplicated; R74.01 Elevation of levels of liver transaminase levels; E87.6 Hypokalemia; K21.9 Gastro-esophageal reflux disease without esophagitis; Z88.0 Allergy status to penicillin; Z78.1 Physical restraint status; Z79.899 Other long term (current) drug therapy; Z90.710 Acquired absence of both cervix and uterus
CPT/HCPCS: 36415; 70450; 70551; 70552; 70553; 71045; 72125; 80048; 80053; 80074; 80076; 80320; 81001; 82140; 82248; 82607; 82746; 82803; 82947; 83735; 84100; 84443; 84478; 85025; 85027; 86592; 87040; 87522; 93005; 93010; 96365; 96367; 96372; 96375; 96376; 97110-CQ; 97129; 97162; 97165; 97530; 99285-25; A9270; A9579; C1751; G0378; J0612; J0696; J1630; J1650; J2060; J3411; J3475; J3480; J7030; J7042; J7131; L0160; P9612

== ENCOUNTER → 2025-06-04 | Outpatient (CLI) | payer OTHER ==
[~2025-06-04] MED LIST changes: +ACAMPROSATE CA333 MG PO; +B-1100 M1 PO; +BUPROPION XL150 M1 PO; +DIVA125 PO; +ESTRADIOL1 MG PO; +HYDR25SUP PR; +MELATONIN 5 MG1 EACH PO; +METO50ER PO; +OMEP20ER PO; +ONE DAILY ESS400 MCG PO; +QUET100 PO; +QUET25 PO; +Seroquel Xr50 MG PO; +TUMS500 MG PO; +ZESTRIL40 M1 PO
[2025-06-04 16:39] LABS: CHOL/HDL RATIO 5.3; Cholesterol 262 mg/dL (50-200); HDL Cholesterol 49 mg/dL (>39); LDL/HDL RATIO Unable to Calculate; Low Density Lipoprotein Chol Unable to Calculate mg/dL (0-110); Triglycerides 485 mg/dL (30-160); Very Low Density Lipoprot Chol Unable to Calculate mg/dL (6-32)
[2025-06-06 18:47] LABS: HCV QNT BY NAAT (IU/ML) Not Detected; HCV QNT BY NAAT (LOG IU/ML) Not Detected; HCV QNT BY NAAT INTERP Not Detected (Not Detected)
== END | disposition home or self-care (01) ==
LOC: LAB SHORT 11:15 → LAB 11:15
PROVIDERS: Hospitalist
DX: E78.5 Hyperlipidemia, unspecified (principal); B18.2 Chronic viral hepatitis C
CPT/HCPCS: 80061; 87522